=== PATIENT | female | born 1940 | race Caucasian/White ===

== ENCOUNTER 2017-02-08 08:50 | Inpatient (IN) | payer OTHER ==
[2017-02-08] VITALS (15 sets, daily range): BP systolic 137–179; BP diastolic 52–80; PULSE 54–84; TEMP 36.2–36.9; O2SAT 94–98; Ht 152.4 cm; Wt 69.9 kg
[~2017-02-08] VITALS: Ht 152.4 cm; Wt 69.9 kg
--- NOTE | 2017-02-08 09:13 | EMERGENCY ROOM VISIT NOTE ---
History Report prepared by Jolynn: Pablito Leyva Under the Supervision of: Dr. Nathen Anand D.O. First contact with patient: 09:00 Chief Complaint: CHEST PAIN Stated Complaint: MOUTH PAIN History of Present Illness The patient is a 76 year old female who presents to the Emergency Room with complaints of intermittent chest pain starting a few months ago. She also reports jaw pain. She has worsening pain with exertion and with lying down. The pain most often occurs at night. She took a nitro prior to arrival with relief. She denies any lower extremity swelling, or any other complaints. As per family member, she does not have any diagnosed history of a heart attack. Source of History: patient Onset: a few months ago Position: chest Timing: intermittent Modifying Factors (Worsening): exertion, other (lying down) Modifying Factors (Relieving): other (nitro with relief) Review of Systems See HPI for pertinent positives & negatives. A total of 10 systems reviewed and were otherwise negative. Past Medical & Surgical Medical Problems: (1) Chest pain (2) No Known Active Medical Problems Family History Patient reports no known family medical history. Social History Smoking Status: Never Smoker Marital Status: Housing Status: lives with family Current/Historical Medications Scheduled Carvedilol (Coreg), 12.5 MG PO BID Ibuprofen Tab (Advil), 200-600 MG PO Q4H Metformin Hcl (Glucophage), 1,000 MG PO BID Simvastatin (Zocor), 20 MG PO QPM Allergies Coded Allergies: No Known Allergies (Unverified , 02/08/17) Physical Exam Vital Signs Date Time Temp Pulse Resp B/P (MAP) Pulse Ox O2 Delivery O2 Flow Rate FiO2 02/08/17 09:59 86 20 144/67 98 Room Air 02/08/17 09:13 87 02/08/17 08:53 36.7 87 20 148/63 95 Room Air Physical Exam CONSTITUTIONAL/VITAL SIGNS: Reviewed / noted above. GENERAL: Non-toxic in appearance. INTEGUMENTARY: Warm, dry, and [place]. HEAD: Normocephalic. EYES: without scleral icterus or trauma. ENT/OROPHARYNX: clear and moist. LYMPHADENOPATHY/NECK: Is supple without lymphadenopathy or meningismus. RESPIRATORY: Lungs clear and equal. CARDIOVASCULAR: Regular rate and rhythm. GI/ABDOMEN: Soft and nontender. No organomegaly or pulsatile mass. No rebound or guarding. Normal bowel sounds. RECTAL: Light brown, guaiac negative stool. EXTREMITIES: Warm and well perfused. BACK: No CVA tenderness. NEUROLOGICAL: Intact without focal deficits. PSYCHIATRIC: normal affect. MUSCULOSKELETAL: Normally developed with good muscle tone. Medical Decision & Procedures ER Provider Diagnostic Interpretation: X ray results and stated below per my interpretation and radiology interpretation. CHEST ONE VIEW PORTABLE HISTORY:76 yearsFemale Evaluate Fever/Sepsis COMPARISON: Fever and sepsis. TECHNIQUE: Portable upright AP view of the chest. FINDINGS: The patient is slightly rotated. The cardiac silhouette is mildly enlarged with atherosclerosis of the aorta. There is no pneumothorax or large pleural effusion. There are patchy alveolar opacities of the right lung base, notably at the right cardiophrenic angle. No overt pulmonary edema. Bones appear to be grossly intact. IMPRESSION: 1. Patchy subsegmental alveolar opacities of the right lung base are present without comparison study available. This may reflect atelectasis or pneumonia. 2. Cardiomegaly without overt pulmonary edema. The above report was generated using voice recognition software. It may contain grammatical, syntax or spelling errors. Electronically signed by: Barron Slater 02/08/2017 9:49 AM Dictated Date/Time: 02/08/2017 9:46 AM Laboratory Results 02/08/17 09:20 Red Blood Count 3.74, Mean Corpuscular Volume 57.2, Mean Corpuscular Hemoglobin 15.0, Mean Corpuscular Hemoglobin Concent 26.2, Neutrophils (%) (Auto) 71.3, Lymphocytes (%) (Auto) 14.9, Monocytes (%) (Auto) 9.3, Eosinophils (%) (Auto) 3.1, Basophils (%) (Auto) 1.2, Neutrophils # (Auto) 3.69, Lymphocytes # (Auto) 0.77, Monocytes # (Auto) 0.48, Eosinophils # (Auto) 0.16, Basophils # (Auto) 0.06 02/08/17 09:20 Test 02/08/17 09:20 White Blood Count 5.17 K/uL (4.8-10.8) Red Blood Count 3.74 M/uL (4.2-5.4) Hemoglobin 5.6 g/dL (12.0-16.0) Hematocrit 21.4 % (37-47) Mean Corpuscular Volume 57.2 fL (80-100) Mean Corpuscular Hemoglobin 15.0 pg (25-34) Mean Corpuscular Hemoglobin Concent 26.2 g/dl (32-36) Platelet Count 268 K/uL (130-400) Neutrophils (%) (Auto) 71.3 % Lymphocytes (%) (Auto) 14.9 % Monocytes (%) (Auto) 9.3 % Eosinophils (%) (Auto) 3.1 % Basophils (%) (Auto) 1.2 % Neutrophils # (Auto) 3.69 K/uL (1.4-6.5) Lymphocytes # (Auto) 0.77 K/uL (1.2-3.4) Monocytes # (Auto) 0.48 K/uL (0.11-0.59) Eosinophils # (Auto) 0.16 K/uL (0-0.5) Basophils # (Auto) 0.06 K/uL (0-0.2) RDW Standard Deviation 40.8 fL (36.4-46.3) RDW Coefficient of Variation 19.6 % (11.5-14.5) Immature Granulocyte % (Auto) 0.2 % Immature Granulocyte # (Auto) 0.01 K/uL (0.00-0.02) Hypochromasia PRESENT Microcytosis PRESENT Prothrombin Time 11.0 SECONDS (9.0-12.0) Prothromb Time International Ratio 1.0 (0.9-1.1) Activated Partial Thromboplast Time 22.3 SECONDS (21.0-31.0) Partial Thromboplastin Ratio 0.9 Anion Gap 10.0 mmol/L (3-11) Estimated GFR () 94.6 Estimated GFR (Non- 81.6 BUN/Creatinine Ratio 28.0 (10-20) Calcium Level 9.1 mg/dl (8.5-10.1) Total Bilirubin 0.3 mg/dl (0.2-1) Direct Bilirubin 0.1 mg/dl (0-0.2) Aspartate Amino Transf (AST/SGOT) 9 U/L (15-37) Alanine Aminotransferase (ALT/SGPT) 20 U/L (12-78) Alkaline Phosphatase 65 U/L (45-117) Total Creatine Kinase 29 U/L (26-192) Creatine Kinase MB 1.1 ng/ml (0.5-3.6) Creatine Kinase MB Ratio 3.8 (0-3.0) Troponin I < 0.015 ng/ml (0-0.045) Total Protein 6.8 gm/dl (6.4-8.2) Albumin 3.8 gm/dl (3.4-5.0) Lipase 270 U/L (73-393) Laboratory results as stated above per my review. ECG Indication: chest pain Rate (beats per minute): 91 Rhythm: normal sinus Findings: no acute ischemic change, other (Mild ST depressions in lateral leads ) ED Course 0900: Previous medical records were reviewed. The patient was evaluated in room B11B. A complete history and physical examination was performed. 0953: I obtained consent for blood. I discussed the results and findings with the patient and her family. They verbalized agreement of the treatment plan. The patient will be evaluated for further management and care. 1011: I discussed the patient's case with Dr. Muniz, from [facility]. Medical Decision Medication Reconciliation: I attest that I have personally reviewed the patient' s current medication list. Patient was found to have a slightly elevated blood pressure due to circumstances. I do not believe that the patient requires hypertension monitoring. Differential diagnosis: Etiologies such as cardiac ischemia, aortic dissection, pulmonary embolism, pneumonia, pneumothorax, musculoskeletal, infections, pericarditis, myocarditis , esophageal rupture, gastrointestinal, as well as others were entertained. This is a 76-year-old female who presents to the ED with a chief complaint of exertional chest and jaw discomfort as well as some discomfort while lying in bed at rest. The patient states that she cannot walk very far without becoming symptomatic. She denies any fevers or recent illness. She has not had a cough. No nausea or vomiting. Her vital signs are stable. Physical exam reveals some paleness of the skin. Otherwise no significant abnormalities noted. Her hemoglobin is 5.6. Stool is guaiac-negative and light brown. Complete metabolic panel was unremarkable. Troponin is negative. Chest x-ray was suggestive of pneumonia or atelectasis per the radiologist. Clinically she does not have pneumonia. This is most likely atelectasis. The patient was typed and crossed and was ordered for transfusion of 2 units. I spoke with the hospitalist, who will see the patient for further inpatient evaluation and care. Consults Time Called: [phone] Consulting Physician: Dr. Muniz, from [facility] Returned Call: 1011 I discussed the patient's case with Dr. Muniz, from [facility]. Impression Primary Impression: Anemia Additional Impression: Chest pain Scribe Attestation The scribe's documentation has been prepared under my direction and personally reviewed by me in its entirety. I confirm that the note above accurately reflects all work, treatment, procedures, and medical decision making performed by me. Departure Information Dispostion Being Evaluated By Hospitalist Referrals No Doctor, Assigned (PCP) Patient Instructions My [facility] Problem Qualifiers
[2017-02-08 09:37] LABS: PARTIAL THROMBOPLASTIN RATIO 0.9
[2017-02-08] MEDS ORDERED: METF-384 PO (09:45)
[2017-02-08] MEDS ORDERED: CARV12.52 PO (09:45)
[2017-02-08] MEDS ORDERED: SIMV20TA2 PO (09:45)
[2017-02-08 09:46] LABS: ALT/SGPT 20 U/L (12-78); BLOOD UREA NITROGEN 20 mg/dl (7-18); CALCIUM 9.1 mg/dl (8.5-10.1); CARBON DIOXIDE 21 mmol/L (21-32); CHLORIDE 108 mmol/L (98-107); CREATININE 0.71 mg/dl (0.60-1.20); GLUCOSE 172 mg/dl (70-99); POTASSIUM 3.9 mmol/L (3.5-5.1); SODIUM 139 mmol/L (136-145)
[2017-02-08] MEDS ORDERED: IBUP-103 PO (09:46)
[2017-02-08 09:47] LABS: HEMATOCRIT 21.4 % (37-47); MEAN CELL VOLUME 57.2 fL (80-100); MEAN CORPUSCULAR HGB CONC 26.2 g/dl (32-36); PLATELET COUNT 268 K/uL (130-400); RED BLOOD COUNT 3.74 M/uL (4.2-5.4); WHITE BLOOD COUNT 5.17 K/uL (4.8-10.8)
--- NOTE | 2017-02-08 09:50 | DIAGNOSTIC IMAGING REPORT ---
CHEST ONE VIEW PORTABLE HISTORY:76 yearsFemale Evaluate Fever/Sepsis COMPARISON: Fever and sepsis. TECHNIQUE: Portable upright AP view of the chest. FINDINGS: The patient is slightly rotated. The cardiac silhouette is mildly enlarged with atherosclerosis of the aorta. There is no pneumothorax or large pleural effusion. There are patchy alveolar opacities of the right lung base, notably at the right cardiophrenic angle. No overt pulmonary edema. Bones appear to be grossly intact. IMPRESSION: 1. Patchy subsegmental alveolar opacities of the right lung base are present without comparison study available. This may reflect atelectasis or pneumonia. 2. Cardiomegaly without overt pulmonary edema. The above report was generated using voice recognition software. It may contain grammatical, syntax or spelling errors. Electronically signed by: Barron Slater 02/08/2017 9:49 AM Dictated Date/Time: 02/08/2017 9:46 AM
[2017-02-08 09:52] LABS: ALKALINE PHOSPHATASE 65 U/L (45-117); AST/SGOT 9 U/L (15-37); BASO % 1.2 %; BASO ABS # 0.06 K/uL (0-0.2); CKMB/CK RATIO 3.8 (0-3.0); COMPLETE YES; EOS % 3.1 %; HYPOCHROMIA PRESENT; IG% 0.2 %; LYMPH % 14.9 %; LYMPH ABS # 0.77 K/uL (1.2-3.4); MICROCYTOSIS PRESENT; MONO % 9.3 %; NEUT % 71.3 %
[2017-02-08 11:02] LABS: FERRITIN 5.6 ng/ml (8.0-388.0)
[2017-02-08] MEDS ORDERED: ONDANSETRON INJ 2 MG/ML 2 ML VIAL IV PRN (11:15)
[2017-02-08] MEDS ORDERED: ACETAMINOPHEN 325 MG TAB PO PRN (11:15)
[2017-02-08] MEDS ORDERED: CYAN100048 PO (11:21)
[2017-02-08] MEDS ORDERED: VITACAP37 PO (11:21)
[2017-02-08] MEDS ORDERED: ASPEC81 PO (11:21)
[2017-02-08] MEDS ORDERED: [UNRECOGNIZED DRUG - OTHER] PO (11:21)
[2017-02-08] MEDS ORDERED: MAGN400C2 PO (11:21)
[2017-02-08] MEDS ORDERED: B-COTAB18 PO (11:21)
[2017-02-08] MEDS ORDERED: [UNRECOGNIZED DRUG - OTHER] PO (11:21)
[2017-02-08] MEDS ORDERED: COEN1CAP PO (11:21)
[2017-02-08] MEDS ORDERED: DEXTROSE 50% 50 ML SYR IV PRN (11:30)
[2017-02-08] MEDS ORDERED: GLUCAGON FOR INJ 1 MG VIAL SQ PRN (11:30)
[2017-02-08] MEDS ORDERED: GLUCOSE 40% GEL 15 GM TUBE PO PRN (11:30)
[2017-02-08] MEDS ORDERED: GLUCOSE 10 TABS/TUBE PO PRN (11:30)
--- NOTE | 2017-02-08 11:43 | Gastrointestinal Consultation ---
Gastrointestinal Consultation Date of Consultation: Feb 08, 2017 Attending Physician: Carter Lees Consulting Physician: Nathan Gomez Reason for Consultation: Iron deficiency anemia History of Present Illness Patient is a 76 year old [place] female who presented to ED w c/o R sided chest pressure and jaw pain, worse w exertion and when lying down. She did take a Nitro before arrival to ED w some relief. Upon eval found to be severely anemic , H/H 5.6/21.4, low MCV, no coagulopathy, iron studies with low iron Fe 8, Transferrin sat 1%, Ferritin 5.6, high TIBC of 505, Tranferrin 381. B12, FA, Troponin was normal CXR showed signs of atelectasis vs pneumonia. She reports appetite loss recently but denies much weight loss, not vegetarian. Denies trouble chewing or swallowing food, abd pain, n/v. She does occasionally get indigestion symptoms. Bowels can be loose or normal at times. Denies any dark colored or bloody stools. Guaiac negative via rectal exam in ED. Past Medical/Surgical History Medical Problems: (1) Anemia Status: Acute (2) Chest pain Status: Acute Past Medical History: See above Past Surgical History: None Family History Patient reports no known family medical history. Sister w GI tumor unknown specifics Social History Smoking Status: Never Smoker Alcohol Use: none Drug Use: none Marital Status: Housing Status: lives with family Allergies Coded Allergies: No Known Allergies (Unverified , 02/08/17) Current Medications Home Meds and Scripts Medications Dose Route/Sig Max Daily Dose Days Date Category [burberine] 2 Tab PO BID 02/08/17 Reported [ardrey care] 7 Tab PO BID 02/08/17 Reported Magnesium Oxide 400 Mg Cap 1 Cap PO DAILY 30 02/08/17 Reported Vitamin B-12 (Cyanocobalamin) 1,000 Mcg Sub 2,000 Mcg PO DAILY 02/08/17 Reported Co Q10 (Coenzyme Q10) 30 Mg Cap 60 Mg PO DAILY 02/08/17 Reported Vitamin B Complex (B-Complex Vitamins) 1 Tab Tab 1 Tab PO DAILY 02/08/17 Reported E-400 (Vitamin E) 400 Unit Cap 1 Tab PO DAILY 02/08/17 Reported Aspirin EC Low Dose (Aspirin) 81 Mg Ectab 81 Mg PO DAILY 02/08/17 Reported Coreg (Carvedilol) 12.5 Mg Tab 12.5 Mg PO BID 02/08/17 Reported Zocor (Simvastatin) 20 Mg Tab 20 Mg PO QPM 02/08/17 Reported Glucophage (Metformin Hcl) 1,000 Mg Tab 1,000 Mg PO BID 02/08/17 Reported Review of Systems Constitutional: No fever, No chills Respiratory: No cough, No shortness of breath Cardiac: + chest pain Abdomen: No pain, No nausea, No vomiting, No diarrhea, No constipation, No GI bleeding Physical Exam Date Time Temp Pulse Resp B/P (MAP) Pulse Ox O2 Delivery O2 Flow Rate FiO2 02/08/17 11:12 77 20 167/71 97 02/08/17 10:38 80 22 171/75 96 Room Air 02/08/17 10:30 96 Room Air 02/08/17 09:59 86 20 144/67 98 Room Air 02/08/17 09:13 87 02/08/17 08:53 36.7 87 20 148/63 95 Room Air General Appearance: WD/WN, no apparent distress Eyes: normal inspection, PERRL, EOMI Neck: supple, no JVD, trachea midline Respiratory/Chest: normal breath sounds, no respiratory distress, no accessory muscle use Cardiovascular: regular rate, rhythm, no gallop, no murmur Abdomen: normal bowel sounds, non tender, soft Extremities: normal inspection, no pedal edema, no calf tenderness Neurologic/Psych: alert, normal mood/affect, oriented x 3 Skin: + pallor Laboratory Results Last 24 Hours Test 02/08/17 09:20 02/08/17 10:26 02/08/17 11:07 White Blood Count 5.17 K/uL Red Blood Count 3.74 M/uL Hemoglobin 5.6 g/dL Hematocrit 21.4 % Mean Corpuscular Volume 57.2 fL Mean Corpuscular Hemoglobin 15.0 pg Mean Corpuscular Hemoglobin Concent 26.2 g/dl Platelet Count 268 K/uL Neutrophils (%) (Auto) 71.3 % Lymphocytes (%) (Auto) 14.9 % Monocytes (%) (Auto) 9.3 % Eosinophils (%) (Auto) 3.1 % Basophils (%) (Auto) 1.2 % Neutrophils # (Auto) 3.69 K/uL Lymphocytes # (Auto) 0.77 K/uL Monocytes # (Auto) 0.48 K/uL Eosinophils # (Auto) 0.16 K/uL Basophils # (Auto) 0.06 K/uL RDW Standard Deviation 40.8 fL RDW Coefficient of Variation 19.6 % Immature Granulocyte % (Auto) 0.2 % Immature Granulocyte # (Auto) 0.01 K/uL Hypochromasia PRESENT Microcytosis PRESENT Absolute Reticulocyte Count 0.05 10^6/uL Percent Reticulocyte Count 1.5 % Prothrombin Time 11.0 SECONDS Prothromb Time International Ratio 1.0 Activated Partial Thromboplast Time 22.3 SECONDS Partial Thromboplastin Ratio 0.9 Sodium Level 139 mmol/L Potassium Level 3.9 mmol/L Chloride Level 108 mmol/L Carbon Dioxide Level 21 mmol/L Anion Gap 10.0 mmol/L Blood Urea Nitrogen 20 mg/dl Creatinine 0.71 mg/dl Estimated GFR () 94.6 Estimated GFR (Non- 81.6 BUN/Creatinine Ratio 28.0 Random Glucose 172 mg/dl Calcium Level 9.1 mg/dl Iron Level 8 mcg/dl Total Iron Binding Capacity 505 mcg/dl Transferrin 381 mg/dl Transferrin % Saturation 1 % % Ferritin 5.6 ng/ml Total Bilirubin 0.3 mg/dl Direct Bilirubin 0.1 mg/dl Aspartate Amino Transf (AST/SGOT) 9 U/L Alanine Aminotransferase (ALT/SGPT) 20 U/L Alkaline Phosphatase 65 U/L Total Creatine Kinase 29 U/L Creatine Kinase MB 1.1 ng/ml Creatine Kinase MB Ratio 3.8 Troponin I < 0.015 ng/ml Total Protein 6.8 gm/dl Albumin 3.8 gm/dl Lipase 270 U/L Vitamin B12 Level 696 pg/mL Folate > 24.00 ng/mL Impression Patient is a 76 year old female w symptoms of R sided chest and jaw pain, found to have severe anemia on evaluation. Troponin, EKG unremarkable. Her iron studies noted to be low, guaiac negative. Plan - Monitor H/H and transfuse prn - Iron repletion - Start Protonix 40mg daily for dyspepsia - No limitation on diet - Discussed w pt and her (Ben) about possible EGD/Colonoscopy to eval iron deficiency anemia, ruling out GI source of blood loss, tumors. They are undecided about these procedures at this time thus I haven't ordered these tests. Will ask our covering physician (Dr. Arevalo) over the weekend to check on pt and if she is willing to have these procedures done, she can be prepped for EGD/Colonoscopy next Saturday vs outpt eval. Addendum: At afternoon rounds, pt agreeable to have EGD/Colonoscopy eval on Sunday 02/11 if she's still admitted. Otherwise if discharged over weekend, will plan on outpt procedures. The endoscopic procedures should not hold up her discharge plans. ATTESTATION: I have performed a history and physical examination of this patient and reviewed the electronic record. Specifically, on physical examination there is no sign of ongoing gastrointestinal bleeding. I have discussed the case with LAURA Thacker. The above note reflects my findings, conclusions, and recommendations. Nathan Gomez MD
--- NOTE | 2017-02-08 12:23 | History and Physical ---
History & Physical Date & Time of Service: Feb 08, 2017 ~ 10:30 Chief Complaint: Jaw Pain Primary Care Physician: Dr. Brown History of Present Illness 76 year old female who presents to the ER with jaw pain. Patient reports pain has been present for the past several months. She notes pain is brought on with exertion. She notes both sides of her jaw ache with radiation into the neck. Pain has been getting worse and occurring with less exertion. Jaw pain also occurs when laying down sometimes. Patient also reports intermittent episodes of left sided chest pain. She reports this pain is not as severe at the jaw pain. She describes it as a mild ache. No radiation into the shoulder or arm. Chest pain does not always occur with the jaw pain. She reports intermittent lightheadedness and dizziness. No syncopal events. Also feels short of breath with exertion at times. She reports a cough over the past one week that has been productive for white / yellow sputum. She denies fever and chills. Reports her appetite has been fair. She denies weight loss. Reports intermittent loose stools. No BRBPR or dark tarry stools. She denies abdominal pain, nausea, or vomiting. She denies urinary symptoms. In the ER, patient is found to have hgb 5.6. Vitals are stable. Stool was heme negative. CXR is showing right basilar opacity suggestive of pneumonia. Past Medical/Surgical History Medical Problems: (1) Chest pain Status: Resolved (2) DM (diabetes mellitus) Status: Chronic (3) HLD (hyperlipidemia) Status: Chronic (4) HTN (hypertension) Status: Chronic Surgical Problems: (1) H/O total hysterectomy Status: Chronic (2) H/O umbilical hernia repair Status: Chronic (3) S/P appendectomy Status: Chronic (4) S/P cholecystectomy Status: Chronic Family History FH: leukemia SISTER Social History Smoking Status: Never Smoker Alcohol Use: none Marital Status: Allergies Coded Allergies: No Known Allergies (Unverified , 02/08/17) Home Medications Scheduled Aspirin (Aspirin EC Low Dose), 81 MG PO DAILY B-Complex Vitamins (Vitamin B Complex), 1 TAB PO DAILY Carvedilol (Coreg), 12.5 MG PO BID Coenzyme Q10 (Ubidecarenone) (Co Q10), 60 MG PO DAILY Cyanocobalamin (Vitamin B-12), 2,000 MCG PO DAILY Magnesium Oxide (Magnesium Oxide), 1 CAP PO DAILY Metformin Hcl (Glucophage), 1,000 MG PO BID Simvastatin (Zocor), 20 MG PO QPM Vitamin E (E-400), 1 TAB PO DAILY [ardrey care], 7 TAB PO BID [burberine], 2 TAB PO BID Review of Systems ROS per HPI, all other systems reviewed and negative Physical Exam Vital Signs Date Time Temp Pulse Resp B/P (MAP) Pulse Ox O2 Delivery O2 Flow Rate FiO2 02/08/17 11:12 77 20 167/71 97 02/08/17 10:38 80 22 171/75 96 Room Air 02/08/17 10:30 96 Room Air 02/08/17 09:59 86 20 144/67 98 Room Air 02/08/17 09:13 87 02/08/17 08:53 36.7 87 20 148/63 95 Room Air General Appearance: no apparent distress Head: normocephalic Eyes: normal inspection ENT: hearing grossly normal Neck: supple, no JVD Respiratory/Chest: no respiratory distress, + crackles (right base, faint) Cardiovascular: regular rate, rhythm, + pertinent finding (trace edema BLLE) Abdomen/GI: normal bowel sounds, non tender, soft Extremities/Musculoskelatal: normal inspection, no calf tenderness Neurologic/Psych: no motor/sensory deficits, alert, normal mood/affect, oriented x 3 Skin: warm/dry, + pallor Diagnostics Laboratory Results Results Past 24 Hours Test 02/08/17 09:20 02/08/17 10:26 02/08/17 11:27 Range/Units White Blood Count 5.17 4.8-10.8 K/uL Red Blood Count 3.74 4.2-5.4 M/uL Hemoglobin 5.6 12.0-16.0 g/dL Hematocrit 21.4 37-47 % Mean Corpuscular Volume 57.2 80-100 fL Mean Corpuscular Hemoglobin 15.0 25-34 pg Mean Corpuscular Hemoglobin Concent 26.2 32-36 g/dl Platelet Count 268 130-400 K/uL Neutrophils (%) (Auto) 71.3 % Lymphocytes (%) (Auto) 14.9 % Monocytes (%) (Auto) 9.3 % Eosinophils (%) (Auto) 3.1 % Basophils (%) (Auto) 1.2 % Neutrophils # (Auto) 3.69 1.4-6.5 K/uL Lymphocytes # (Auto) 0.77 1.2-3.4 K/uL Monocytes # (Auto) 0.48 0.11-0.59 K/uL Eosinophils # (Auto) 0.16 0-0.5 K/uL Basophils # (Auto) 0.06 0-0.2 K/uL RDW Standard Deviation 40.8 36.4-46.3 fL RDW Coefficient of Variation 19.6 11.5-14.5 % Immature Granulocyte % (Auto) 0.2 % Immature Granulocyte # (Auto) 0.01 0.00-0.02 K/uL Hypochromasia PRESENT Microcytosis PRESENT Absolute Reticulocyte Count 0.05 0.02-0.10 10^6/uL Percent Reticulocyte Count 1.5 0.5-2.0 % Prothrombin Time 11.0 9.0-12.0 SECONDS Prothromb Time International Ratio 1.0 0.9-1.1 Activated Partial Thromboplast Time 22.3 21.0-31.0 SECONDS Partial Thromboplastin Ratio 0.9 Sodium Level 139 136-145 mmol/L Potassium Level 3.9 3.5-5.1 mmol/L Chloride Level 108 98-107 mmol/L Carbon Dioxide Level 21 21-32 mmol/L Anion Gap 10.0 3-11 mmol/L Blood Urea Nitrogen 20 7-18 mg/dl Creatinine 0.71 0.60-1.20 mg/dl Estimated GFR () 94.6 Estimated GFR (Non- 81.6 BUN/Creatinine Ratio 28.0 10-20 Random Glucose 172 70-99 mg/dl Calcium Level 9.1 8.5-10.1 mg/dl Iron Level 8 35-150 mcg/dl Total Iron Binding Capacity 505 250-450 mcg/dl Transferrin 381 200-360 mg/dl Transferrin % Saturation 1 15-50 % Ferritin 5.6 8.0-388.0 ng/ml Total Bilirubin 0.3 0.2-1 mg/dl Direct Bilirubin 0.1 0-0.2 mg/dl Aspartate Amino Transf (AST/SGOT) 9 15-37 U/L Alanine Aminotransferase (ALT/SGPT) 20 12-78 U/L Alkaline Phosphatase 65 45-117 U/L Total Creatine Kinase 29 26-192 U/L Creatine Kinase MB 1.1 0.5-3.6 ng/ml Creatine Kinase MB Ratio 3.8 0-3.0 Troponin I < 0.015 0-0.045 ng/ml Total Protein 6.8 6.4-8.2 gm/dl Albumin 3.8 3.4-5.0 gm/dl Lipase 270 73-393 U/L Vitamin B12 Level 696 211-911 pg/mL Folate > 24.00 >5.38 ng/mL Diagnostic Radiology CXR IMPRESSION: 1. Patchy subsegmental alveolar opacities of the right lung base are present without comparison study available. This may reflect atelectasis or pneumonia. 2. Cardiomegaly without overt pulmonary edema. Impression Assessment and Plan SEVERE ANEMIA - admit to tele - patient presenting with worsening exertional jaw pain, chest pain, and shortness of breath for the past few months; in the ED, found to have hgb 5.6 - appears to be RUDY - stools heme negative in ED, no obvious signs of bleeding, vitals stable - will transfuse with 2 units PRBC, check H/H post transfusion - no history of EGD or colonoscopy - GI consult placed; however patient unsure if she would want the testing done - will start iron replacement CHEST PAIN - likely from symptomatic anemia - initial troponin negative, EKG shows ST depressions in the lateral leads - possibly demand ischemia from anemia - continue cycle cardiac enzymes, check resting echo - re-evaluate symptoms once hgb improves; consider stress test - continue ASA, beta cleve, and statin COMMUNITY ACQUIRED PNEUMONIA - productive cough x 1 week - right basilar opacity on CXR - no signs of sepsis - Levaquin 750mg x 5 days HTN - BP controlled, continue carvedilol DM - hgb a1c 7.0 04/2016 - hold oral agents and utilize SSI while hospitalized DVT PROPHYLAXIS - SCDs due to anemia CODE STATUS - Patient is a DNR as per my discussion with her. DISPO - In my clinical judgment this beneficiary meets acute admission criteria, established by [facility], that includes being hospitalized through two midnights. Attending Note: Patient is a a 76 yr female presents for evaluation of ongoing intermittent chest and Jaw pain associated with exertional SOB sine few months and also reports cough with yellowish sputum since 1 week. Denies any source of bleeding. Never had endoscopy/colonoscopy. Physical Exam: Vitals signs as noted above General Appearance:Moderately built and nourished, no apparent distress Head: normocephalic, Atraumatic Eyes: normal inspection, EOMI, PERRL, + Pallor Neck: supple, Trachea midline Respiratory/Chest: Normal breath sounds, CTA Cardiovascular: S1, S2, No murmur Abdomen/GI:Soft, Non tender, Bowel sounds present Extremities/Musculoskelatal:normal inspection, no edema Neurologic/Psych:AAOX3, grossly no focal neurological deficits Skin:normal color,warm Assessment and Plan: Symptomatic Anemia: Likely Iron deficiency GI consulted for possible Endo/Colonoscopy Transfuse 2 units PRBCs Iron therapy started Monitor Hb Chest Pain r/o ACS: No previous EKG to compare I personally reviewed the record. Patient is interviewed and examined at bedside. Patient's care is coordinated with Juany Avila [employer]. Please refer to the documentation above for details of patient's presentation and for discussion of other issues. Advanced Directives Existing Living Will: No Existing Power of Housekeeper And Laundry Assistant: No VTE Prophylaxis VTE Risk Assessment Done? Y/N: Yes Risk Level: Moderate
[2017-02-08 12:26] LABS: HEMATOCRIT 19.5 % (37-47)
[2017-02-08] MEDS: INSULIN ASPART 100 UNITS/ML 3 ML PEN SC SCH ×3 (12:30→20:59)
[2017-02-08 12:55] LABS: URINE APPEARANCE CLEAR (CLEAR); URINE BILIRUBIN NEG (NEG); URINE COLOR YELLOW; URINE NITRITE NEG (NEG); URINE PH 5.5 (4.5-7.5); URINE SPECIFIC GRAVITY 1.014 (1.000-1.030); UROBILINOGEN NEG (NEG); ZZUR CULT IF INDIC CLEAN CATCH YES
[2017-02-08 12:57] LABS: MANUAL MICROSCOPIC REQUIRED? NO; REVIEW REQ? NO
[2017-02-08] MEDS: LEVOFLOXACIN 750 MG TAB PO SCH (13:02)
[2017-02-08] MEDS: FERROUS SULFATE 325 MG TAB PO SCH ×2 (13:02→16:57)
[2017-02-08] MEDS ORDERED: PANTOprazole SOD 40 MG TAB PO ONE (16:23)
[2017-02-08] MEDS ORDERED: NURSING VERBAL MED ORDER ONE (16:30)
[2017-02-08] MEDS ORDERED: DICLOFENAC SOD 1% GEL 100 GM TUBE EXT PRN (16:30)
[2017-02-08] MEDS ORDERED: AMLODIPINE BESYLATE 5 MG TAB PO ONE (17:00)
[2017-02-08 19:04] LABS: HEMATOCRIT 27.8 % (37-47)
[2017-02-08] MEDS ORDERED: SIMVASTATIN 20 MG TAB PO SCH (21:00)
[2017-02-08] MEDS: CARVEDILOL 12.5 MG TAB PO SCH (21:03)
[2017-02-09] VITALS (7 sets, daily range): BP systolic 151–178; BP diastolic 59–80; PULSE 73–85; TEMP 36.4–37.1; O2SAT 92–96
[2017-02-09] MEDS: INSULIN ASPART 100 UNITS/ML 3 ML PEN SC SCH ×3 (07:00→16:51)
[2017-02-09 07:19] LABS: MEAN CELL VOLUME 61.8 fL (80-100); MEAN CORPUSCULAR HEMOGLOBIN 18.5 pg (25-34); PLATELET COUNT 232 K/uL (130-400); RED BLOOD COUNT 4.53 M/uL (4.2-5.4); WHITE BLOOD COUNT 5.63 K/uL (4.8-10.8)
[2017-02-09] MEDS: CARVEDILOL 12.5 MG TAB PO SCH (07:22)
[2017-02-09] MEDS: FERROUS SULFATE 325 MG TAB PO SCH ×3 (07:25→16:48)
[2017-02-09 07:53] LABS: ESTIMATED AVERAGE GLUCOSE 140 mg/dl; HA1C FLAG Normal (Normal)
[2017-02-09 08:06] LABS: BUN/CREATININE RATIO 21.3 (10-20); CREATININE 0.62 mg/dl (0.60-1.20); POTASSIUM 3.6 mmol/L (3.5-5.1)
[2017-02-09] MEDS ORDERED: PANTOprazole SOD 40 MG TAB PO SCH (09:00)
[2017-02-09] MEDS ORDERED: VITAMIN B COMPLEX TAB PO SCH (09:00)
[2017-02-09] MEDS ORDERED: COENZYME Q10 60 MG PO SCH (09:00)
[2017-02-09] MEDS ORDERED: MAGNESIUM OXIDE 400 MG TAB PO SCH (09:00)
[2017-02-09] MEDS ORDERED: ASPIRIN 81 MG ECTAB PO SCH (09:00)
[2017-02-09] MEDS ORDERED: TOCOPHERYL, DL-ALPHA 400 INTER.UNIT CAP PO SCH (09:00)
[2017-02-09] MEDS ORDERED: CYANOCOBALAMIN 500 MCG TAB (VIT B-12) PO SCH (09:00)
[2017-02-09] MEDS ORDERED: CEFTRIAXONE SOD INJ 1 GM in DEXTROSE 5% ADD-VANTAGE 50ML 50 ML IV SCH (10:30)
[2017-02-09] MEDS: LEVOFLOXACIN 750 MG TAB PO SCH (11:10)
--- NOTE | 2017-02-09 13:15 | ECHOCARDIOGRAM REPORT ---
*NOTICE TO RECEIVING CONSTITUTION PARTY AGENCY This information is strictly Confidential and protected under [place] law. [place] law prohibits you from making any further disclosure of this information unless further disclosure is expressly permitted by the written consent of the person to whom it pertains or is authorized by law. A general authorization for the release of medical or other information is not sufficient for this purpose. Hospital accepts no responsibility if the information is made available to any other person, INCLUDING THE PATIENT. Interpretation Summary * Name: KATHRYN LAZAR Study Date: 02/09/2017 08:52 AM * Patient Location: .2T\S\S232\S\1 HR: 79 * : 1940 (M/d/yyyy) Gender: Female Height: 62 in * Age: 76 yrs Ethnicity: [place] Weight: 154 lb * Ordering Physician: Juany Avila * Referring Physician: Self, Referred * Performed By: [facility] * * Reason For Study: Chest pain * BSA: 1.7 m2 * -- Conclusions -- * Normal LV chamber size with mild concentric LVH. * Normal LV systolic function, EF 65-70%. * No segmental left ventricular wall motion abnormalities are noted. * Grade I diastolic dysfunction. * Aortic valve sclerosis mild, without significant aortic valvular stenosis. Procedure Details * Left Ventricle The left ventricle is normal in size. There is mild concentric left ventricular hypertrophy. Ejection Fraction = 65-70%. Left ventricular systolic function is normal. No segmental left ventricular wall motion abnormalities are noted. The left ventricular wall motion is normal. * Right Ventricle The right ventricular cavity size is normal (basal dimension <4.2 cm in right ventricular apical 4-chamber view). The right ventricular systolic function is normal as assessed by tricuspid annular plane systolic excursion (TAPSE) (normal >1.5 cm). * Atria The left atrial size is normal. Right atrial size is normal. No ASD detected; PFO is not assessed. * Mitral Valve The mitral valve is normal in structure and function. * Tricuspid Valve The tricuspid valve is normal in structure and function. * Aortic Valve The aortic valve is trileaflet. Aortic valve sclerosis mild, without significant aortic valvular stenosis. There is no significant aortic regurgitation. * Pulmonic Valve The pulmonary valve is not well seen, but the Doppler examination is normal without significant regurgitation or stenosis. * Great Vessels The aortic root is not well visualized. * Pericardium/Pleural There is no pericardial effusion. * Left Ventricular Diastolic Function Grade I diastolic dysfunction, (abnormal relaxation pattern). * * MMode 2D Measurements and Calculations * IVSd 1.0 cm * * LVIDd 5.0 cm * LVIDs 2.8 cm * LVPWd 1.1 cm * * IVS/LVPW 0.92 * FS 43.9 % * EDV(Teich) 117.0 ml * ESV(Teich) 29.3 ml * EF(Teich) 74.9 % * * EDV(cubed) 123.3 ml * ESV(cubed) 21.7 ml * EF(cubed) 82.4 % * * LV mass(C)d 198.3 grams * LV mass(C)dI 115.9 grams/m\S\2 * * SV(Teich) 87.7 ml * SI(Teich) 51.2 ml/m\S\2 * SV(cubed) 101.5 ml * SI(cubed) 59.4 ml/m\S\2 * * Ao root diam 2.9 cm * Ao root area 6.5 cm\S\2 * * LVOT diam 2.0 cm * LVOT area 3.3 cm\S\2 * * LVAd ap4 27.8 cm\S\2 * LVLd ap4 8.1 cm * EDV(MOD-sp4) 79.1 ml * EDV(sp4-el) 81.2 ml * LVAs ap4 12.4 cm\S\2 * LVLs ap4 6.2 cm * ESV(MOD-sp4) 20.5 ml * ESV(sp4-el) 21.1 ml * EF(MOD-sp4) 74.1 % * EF(sp4-el) 74.0 % * * LVAd ap2 26.1 cm\S\2 * LVLd ap2 8.0 cm * EDV(MOD-sp2) 69.9 ml * EDV(sp2-el) 72.4 ml * LVAs ap2 13.0 cm\S\2 * LVLs ap2 6.7 cm * ESV(MOD-sp2) 21.9 ml * ESV(sp2-el) 21.4 ml * EF(MOD-sp2) 68.6 % * EF(sp2-el) 70.4 % * * LVLd %diff -1.34 % * EDV(MOD-bp) 75.5 ml * LVLs %diff 7.5 % * ESV(MOD-bp) 21.7 ml * EF(MOD-bp) 71.2 % * * SV(MOD-sp4) 58.6 ml * SI(MOD-sp4) 34.2 ml/m\S\2 * * SV(MOD-sp2) 48.0 ml * SI(MOD-sp2) 28.0 ml/m\S\2 * * SV(MOD-bp) 53.7 ml * SI(MOD-bp) 31.4 ml/m\S\2 * * SV(sp4-el) 60.1 ml * SI(sp4-el) 35.1 ml/m\S\2 * * SV(sp2-el) 50.9 ml * SI(sp2-el) 29.8 ml/m\S\2 * * * Doppler Measurements and Calculations * MV E max simona 103.5 cm/sec * * MV dec time 0.18 sec * * Ao V2 max 154.1 cm/sec * Ao max PG 9.5 mmHg * Ao max PG (full) 5.4 mmHg * DASHA(V,A) 2.2 cm\S\2 * DASHA(V,D) 2.2 cm\S\2 * * LV V1 max PG 4.1 mmHg * * LV V1 max 101.4 cm/sec * * * * *
--- NOTE | 2017-02-09 15:07 | Progress Note ---
Medicine Progress Note Date & Time of Visit: Feb 09, 2017 at 14:49. Subjective Pt was seen and examined Lying in bed with no distress with as bedside Pt said that she feels much better she said that she is not having the jaw pain and the chest pain She had a normal BM yesterday she feels a little weak Denies any chest pain, palpitation, dizziness and SOB Objective Last 8 Hrs Date Time Temp Pulse Resp B/P (MAP) Pulse Ox O2 Delivery O2 Flow Rate FiO2 02/09/17 12:35 36.7 79 16 151/59 (89) 96 Room Air 02/09/17 11:24 Room Air 02/09/17 08:00 Room Air 02/09/17 07:50 36.8 73 20 151/75 (100) 92 Room Air Physical Exam: General- No acute distress Head- atraumatic Eyes- PERRL, EOMI ENT- oropharynx clear Neck- supple, no JVD Lungs- mild faint wheezing Heart- regular rhythm Abdomen- normal bowel sounds, nontender Extremities- no calf tenderness Neuro- alert, oriented x 3; PERRL, EOMI Skin- warm & dry Laboratory Results: Last 24 Hours Test 02/08/17 15:00 02/08/17 17:00 02/08/17 18:42 02/08/17 20:52 Creatine Kinase MB Ratio Bedside Glucose 137 mg/dl 129 mg/dl Hemoglobin 8.2 g/dL Hematocrit 27.8 % Creatine Kinase MB 0.5 ng/ml Troponin I < 0.015 ng/ml Test 02/08/17 23:40 02/09/17 06:28 02/09/17 06:48 02/09/17 11:22 Creatine Kinase MB < 0.5 ng/ml Creatine Kinase MB Ratio Troponin I < 0.015 ng/ml Bedside Glucose 147 mg/dl 166 mg/dl White Blood Count 5.63 K/uL Red Blood Count 4.53 M/uL Hemoglobin 8.4 g/dL Hematocrit 28.0 % Mean Corpuscular Volume 61.8 fL Mean Corpuscular Hemoglobin 18.5 pg Mean Corpuscular Hemoglobin Concent 30.0 g/dl RDW Standard Deviation 56.9 fL RDW Coefficient of Variation 25.8 % Platelet Count 232 K/uL Sodium Level 140 mmol/L Potassium Level 3.6 mmol/L Chloride Level 108 mmol/L Carbon Dioxide Level 23 mmol/L Anion Gap 9.0 mmol/L Blood Urea Nitrogen 13 mg/dl Creatinine 0.62 mg/dl Est Creatinine Clear Calc Drug Dose 68.5 ml/min Estimated GFR () 100.1 Estimated GFR (Non- 86.4 BUN/Creatinine Ratio 21.3 Random Glucose 127 mg/dl Estimated Average Glucose 140 mg/dl Hemoglobin A1c 6.5 % Calcium Level 9.0 mg/dl Assessment & Plan SEVERE ANEMIA - Present with Hgb 5.6 on admission - Mostly due to RUDY - stools heme negative in ED, no obvious signs of bleeding, vitals stable - Transfused 2 units PRBC yesterday - Gastro on board recommended EGD and colonoscopy work up - Pt wants to go home and she will arrange for workup as an outpatient - Continue iron supplement - check H/H at 5pm and if stable, will discharge home and will do EGD/ Colonoscopy as an outpatient. CHEST PAIN - likely from symptomatic anemia - EKG shows ST depressions in the lateral leads - possibly demand ischemia from anemia - All sets CM are negative - Continue ASA since no signs of active bleeding, will hold if hgb drops after blood transfusion - continue beta cleve, and statin - Echo done showed Normal LV chamber size with mild concentric LVH. * Normal LV systolic function, EF 65-70%. * No segmental left ventricular wall motion abnormalities are noted. * Grade I diastolic dysfunction. * Aortic valve sclerosis mild, without significant aortic valvular stenosis. COMMUNITY ACQUIRED PNEUMONIA - productive cough x 1 week - right basilar opacity on CXR - no signs of sepsis - Levaquin 750mg x 5 days UTI Asymptomatic, afebrile, no leukocytosis Urine cx growth Ecoli Receive rocephin x1 Already on levaquin that should be covered for UTI HTN - BP controlled, continue carvedilol Stable DM - hgb a1c 6.5 on 02/09 - Controlled - hold oral agents and utilize SSI while hospitalized DVT PROPHYLAXIS - SCDs due to anemia CODE STATUS - Patient is a DNR as per my discussion with her. Consultants: Gastro Current Inpatient Medications: Current Inpatient Medications Medications (Trade) Dose Ordered Sig/Vance Route Start Time Stop Time Status Last Admin Dose Admin Acetaminophen (Tylenol Tab) 650 mg Q4H PRN PO 02/08/17 11:15 03/10/17 11:14 02/08/17 15:09 650 MG Ondansetron HCl (Zofran Inj) 4 mg Q6H PRN IV 02/08/17 11:15 03/10/17 11:14 Levofloxacin (Levaquin Tab) 750 mg DAILY@11 PO 02/08/17 13:00 02/12/17 11:01 02/09/17 11:10 750 MG Ferrous Sulfate (Feosol Tab) 325 mg TIDM PO 02/08/17 12:30 03/10/17 12:29 02/09/17 11:10 325 MG Aspirin (Ecotrin Tab) 81 mg DAILY PO 02/09/17 09:00 03/11/17 08:59 02/09/17 07:25 81 MG Carvedilol (Coreg Tab) 12.5 mg BID PO 02/08/17 21:00 03/10/17 20:59 02/09/17 07:22 12.5 MG Simvastatin (Zocor Tab) 20 mg QPM PO 02/08/17 21:00 03/10/17 20:59 02/08/17 21:03 20 MG ep-Ppwfo-Ypkcpzujin Acetate (Vitamin E Cap) 400 interunit DAILY PO 02/09/17 09:00 03/11/17 08:59 02/09/17 07:26 400 INTERUNIT Vitamin B Complex (Vitamin B Complex) 1 tab DAILY PO 02/09/17 09:00 03/11/17 08:59 02/09/17 07:24 1 TAB Cyanocobalamin (Vitamin B-12 Tab) 2,000 mcg DAILY PO 02/09/17 09:00 03/11/17 08:59 02/09/17 07:23 2,000 MCG Magnesium Oxide (Mag-Ox Tab) 400 mg DAILY PO 02/09/17 09:00 03/11/17 08:59 02/09/17 07:25 400 MG Insulin Aspart (novoLOG ASPART) SLIDING SCALE If C... ACHS SC 02/08/17 12:30 03/10/17 12:29 02/08/17 17:04 2 UNITS Glucose (Glucose 40% Gel) 15-30 GRAMS 15 GRAMS... UD PRN PO 02/08/17 11:30 03/10/17 11:29 Glucose (Glucose Chew Tab) 4-8 Tablets 4 Tabl... UD PRN PO 02/08/17 11:30 8/6/17 11:29 Dextrose (Dextrose 50% 50ML Syringe) 25-50ML OF 50% DW IV FOR... UD PRN IV 02/08/17 11:30 03/10/17 11:29 Glucagon (Glucagon Inj) 1 mg UD PRN SQ 02/08/17 11:30 03/10/17 11:29 Bisacodyl (Dulcolax Tab) 20 mg ONE ONCE PO 02/10/17 17:00 02/10/17 17:01 Polyethylene (Miralax Powder Packet) 119 gm ONE ONCE PO 02/10/17 17:00 02/10/17 17:01 Polyethylene (Miralax Powder Packet) 119 gm ONE ONCE PO 02/10/17 21:00 02/10/17 21:01 Pantoprazole Sodium (Protonix Tab) 40 mg QAM PO 02/09/17 09:00 03/11/17 08:59 02/09/17 07:24 40 MG Diclofenac Sodium (Voltaren 1% Top Gel) 1 appln BID PRN EXT 02/08/17 16:30 03/10/17 16:29 Ceftriaxone Sodium 1 gm/ Dextrose 50 ml @ 100 mls/hr Q24H IV 02/09/17 10:30 02/14/17 10:14 02/09/17 10:46 100 MLS/HR
[2017-02-09] MEDS ORDERED: ALBUT/IPRATROP 3MG/0.5MG NEB 3 ML VIAL INH ONE (17:00)
[2017-02-09 17:03] LABS: HEMATOCRIT 29.9 % (37-47)
[2017-02-09] MEDS ORDERED: FRRS300 PO (17:39)
[2017-02-09] MEDS ORDERED: LVQ750 PO (17:39)
[2017-02-09] MEDS ORDERED: PRT40 PO (17:39)
--- NOTE | 2017-02-09 17:47 | Discharge Instructions ---
Discharge Instructions Date of Service Feb 09, 2017. Admission Reason for Admission: Anemia Discharge Discharge Diagnosis / Problem: Anemia, Chest pain, Pnemonia, Abnormal urine Discharge Goals Goal(s): Decrease discomfort, Improve function, Improve disease control Activity Recommendations Activity Limitations: resume your previous activity (as tolerated) . Instructions / Follow-Up Instructions / Follow-Up Please follow up with your physician on 02/14/17 at 12:45 pm Check CBC in 1 week Your physician will arrange for referral to see the abdominal specialist doctor that you can get an colonoscopy and Endoscopy as an outpatient Continue iron supplement complete the antibiotic (levaquin) course Please avoid Naproxen, aleve, motrin, ibuprofen for now. Current Hospital Diet Patient's current hospital diet: AHA Diet (Heart Healthy) Discharge Diet Recommended Diet: AHA Diet (Heart Healthy) Pending Studies Studies pending at discharge: yes List of pending studies: Urine culture Laboratory Results Hemoglobin A1c Test 02/09/17 06:48 Range/Units Estimated Average Glucose 140 mg/dl Hemoglobin A1c 6.5 H 4.5-5.6 % Medical Emergencies . Who to Call and When: Medical Emergencies: If at any time you feel your situation is an emergency, please call 911 immediately. . Non-Emergent Contact Non-Emergency issues call your: Primary Care Provider Call Non-Emergent contact if: you have a fever, you have any medication questions . . "Provider Documentation" section prepared by Hilaria Muniz. . VTE Core Measure Inpt VTE Proph given/why not?: SCD's, Contraindicated
[2017-02-10] MEDS ORDERED: BISACODYL 5 MG TABEC PO ONE (17:00)
[2017-02-10] MEDS ORDERED: POLYETHYLENE (MIRALAX) 17 GM PACK PO ONE ×2 (17:00→21:00)
--- NOTE | 2017-02-13 00:13 | Discharge Summary ---
Discharge Summary Date of Service Feb 13, 2017. Discharge Summary Admission Date: Feb 08, 2017 at 10:21 Discharge Date: Feb 09, 2017 Discharge Disposition: Home Principal Diagnosis: Severe Anemia Secondary Diagnoses/Problems: Anemia Chest pain Pneumonia Abnormal urine HTN DM Procedures: [~ rep ct add3]] CHEST ONE VIEW PORTABLE HISTORY:76 yearsFemale Evaluate Fever/Sepsis COMPARISON: Fever and sepsis. TECHNIQUE: Portable upright AP view of the chest. FINDINGS: The patient is slightly rotated. The cardiac silhouette is mildly enlarged with atherosclerosis of the aorta. There is no pneumothorax or large pleural effusion. There are patchy alveolar opacities of the right lung base, notably at the right cardiophrenic angle. No overt pulmonary edema. Bones appear to be grossly intact. IMPRESSION: 1. Patchy subsegmental alveolar opacities of the right lung base are present without comparison study available. This may reflect atelectasis or pneumonia. 2. Cardiomegaly without overt pulmonary edema. The above report was generated using voice recognition software. It may contain grammatical, syntax or spelling errors. Electronically signed by: Barron Slater 02/08/2017 9:49 AM Dictated Date/Time: 02/08/2017 9:46 AM Consultations: Gastro Medication Reconciliation New Medications: Ferrous Sulfate (Ferrous Sulfate) 325 Mg Tab 325 MG PO BID for 30 Days, #60 TAB Levofloxacin (Levofloxacin) 750 Mg Tab 750 MG PO DAILY@11 for 3 Days, TAB Pantoprazole (Pantoprazole Sodium) 40 Mg Tab 40 MG PO QAM for 30 Days, #30 TAB Continued Medications: Aspirin (Aspirin EC Low Dose) 81 Mg Ectab 81 MG PO DAILY B-Complex Vitamins (Vitamin B Complex) 1 Tab Tab 1 TAB PO DAILY Carvedilol (Coreg) 12.5 Mg Tab 12.5 MG PO BID, TAB Coenzyme Q10 (Ubidecarenone) (Co Q10) 30 Mg Cap 60 MG PO DAILY, CAP Cyanocobalamin (Vitamin B-12) 1,000 Mcg Sub 2000 MCG PO DAILY Magnesium Oxide (Magnesium Oxide) 400 Mg Cap 1 CAP PO DAILY for 30 Days, #30 CAP 3 Refills Metformin Hcl (Glucophage) 1,000 Mg Tab 1000 MG PO BID, TAB Simvastatin (Zocor) 20 Mg Tab 20 MG PO QPM, TAB Vitamin E (E-400) 400 Unit Cap 1 TAB PO DAILY [ardrey care] () 7 TAB PO BID [burberine] () 2 TAB PO BID Admission Information HPI (per Admitting provider): 76 year old female who presents to the ER with jaw pain. Patient reports pain has been present for the past several months. She notes pain is brought on with exertion. She notes both sides of her jaw ache with radiation into the neck. Pain has been getting worse and occurring with less exertion. Jaw pain also occurs when laying down sometimes. Patient also reports intermittent episodes of left sided chest pain. She reports this pain is not as severe at the jaw pain. She describes it as a mild ache. No radiation into the shoulder or arm. Chest pain does not always occur with the jaw pain. She reports intermittent lightheadedness and dizziness. No syncopal events. Also feels short of breath with exertion at times. She reports a cough over the past one week that has been productive for white / yellow sputum. She denies fever and chills. Reports her appetite has been fair. She denies weight loss. Reports intermittent loose stools. No BRBPR or dark tarry stools. She denies abdominal pain, nausea, or vomiting. She denies urinary symptoms. In the ER, patient is found to have hgb 5.6. Vitals are stable. Stool was heme negative. CXR is showing right basilar opacity suggestive of pneumonia. Physical Exam (per Admitting): General Appearance: no apparent distress Head: normocephalic Eyes: normal inspection ENT: hearing grossly normal Neck: supple, no JVD Respiratory/Chest: no respiratory distress, + crackles (right base, faint) Cardiovascular: regular rate, rhythm, + pertinent finding (trace edema BLLE) Abdomen/GI: normal bowel sounds, non tender, soft Extremities/Musculoskelatal: normal inspection, no calf tenderness Neurologic/Psych: no motor/sensory deficits, alert, normal mood/affect, oriented x 3 Skin: warm/dry, + pallor Hospital Course SEVERE ANEMIA - Present with Hgb 5.6 on admission - Mostly due to RUDY - stools heme negative in ED, no obvious signs of bleeding, vitals stable - Transfused 2 units PRBC yesterday - Gastro on board recommended EGD and colonoscopy work up - Pt wants to go home and she will arrange for workup as an outpatient - Continue iron supplement - check H/H at 5pm and if stable, will discharge home and will do EGD/ Colonoscopy as an outpatient. CHEST PAIN - likely from symptomatic anemia - EKG shows ST depressions in the lateral leads - possibly demand ischemia from anemia - All sets CM are negative - Continue ASA since no signs of active bleeding, will hold if hgb drops after blood transfusion - continue beta cleve, and statin - Echo done showed Normal LV chamber size with mild concentric LVH. * Normal LV systolic function, EF 65-70%. * No segmental left ventricular wall motion abnormalities are noted. * Grade I diastolic dysfunction. * Aortic valve sclerosis mild, without significant aortic valvular stenosis. COMMUNITY ACQUIRED PNEUMONIA - productive cough x 1 week - right basilar opacity on CXR - no signs of sepsis - Levaquin 750mg x 5 days UTI Asymptomatic, afebrile, no leukocytosis Urine cx growth Ecoli Receive rocephin x1 Already on levaquin that should be covered for UTI HTN - BP controlled, continue carvedilol Stable DM - hgb a1c 6.5 on 02/09 - Controlled - hold oral agents and utilize SSI while hospitalized DVT PROPHYLAXIS - SCDs due to anemia CODE STATUS - Patient is a DNR as per my discussion with her. Total time spent on discharge = 35 minutes This includes examination of the patient, discharge planning, medication reconciliation, and communication with other providers. Discharge Instructions Discharge Instructions Date of Service Feb 09, 2017. Admission Reason for Admission: Anemia Discharge Discharge Diagnosis / Problem: Anemia, Chest pain, Pnemonia, Abnormal urine Discharge Goals Goal(s): Decrease discomfort, Improve function, Improve disease control Activity Recommendations Activity Limitations: resume your previous activity (as tolerated) . Instructions / Follow-Up Instructions / Follow-Up Please follow up with your physician on 02/14/17 at 12:45 pm Check CBC in 1 week Your physician will arrange for referral to see the abdominal specialist doctor that you can get an colonoscopy and Endoscopy as an outpatient Continue iron supplement complete the antibiotic (levaquin) course Please avoid Naproxen, aleve, motrin, ibuprofen for now. Current Hospital Diet Patient's current hospital diet: AHA Diet (Heart Healthy) Discharge Diet Recommended Diet: AHA Diet (Heart Healthy) Pending Studies Studies pending at discharge: yes List of pending studies: Urine culture Laboratory Results Hemoglobin A1c Test 02/09/17 06:48 Range/Units Estimated Average Glucose 140 mg/dl Hemoglobin A1c 6.5 H 4.5-5.6 % Medical Emergencies . Who to Call and When: Medical Emergencies: If at any time you feel your situation is an emergency, please call 911 immediately. . Non-Emergent Contact Non-Emergency issues call your: Primary Care Provider Call Non-Emergent contact if: you have a fever, you have any medication questions . . "Provider Documentation" section prepared by Hilaria Muniz. . VTE Core Measure Inpt VTE Proph given/why not?: SCD's, Contraindicated
== END 2017-02-09 18:35 | disposition home or self-care (01) | DRG 811 ==
LOC: C.EDB 08:53 → C.2T 10:21 → ENRESERV 10:58
PROVIDERS: ADMIT Internal Medicine; ATTEND Internal Medicine
DX: D50.9 Iron deficiency anemia, unspecified (principal); J18.9 Pneumonia, unspecified organism; N39.0 Urinary tract infection, site not specified; R07.9 Chest pain, unspecified; B96.20 Unspecified Escherichia coli [E. coli] as the cause of diseases classified elsewhere; I10 Essential (primary) hypertension; E78.5 Hyperlipidemia, unspecified; E11.9 Type 2 diabetes mellitus without complications; Z66 Do not resuscitate; Z79.82 Long term (current) use of aspirin; Z79.84 Long term (current) use of oral hypoglycemic drugs; Z79.899 Other long term (current) drug therapy

== ENCOUNTER 2018-03-09 08:01 | Observation (INO) | payer OTHER ==
[2018-03-09] VITALS (8 sets, daily range): BP systolic 145–159; BP diastolic 70–75; PULSE 70–83; TEMP 35–37.2; O2SAT 94–99; Ht 157.5 cm; Wt 61.2 kg
[~2018-03-09] VITALS: Ht 157.5 cm; Wt 61.2 kg
[~2018-03-09 08:01] MED LIST: B-COTAB18 PO; CARV12.52 PO; COEN1CAP PO; CYAN100048 PO; FERR1TAB13 PO; MAGN400C2 PO; METF-384 PO; PANT40TA PO; SIMV20TA2 PO; VITACAP37 PO; VNTHFA/IN INH
[2018-03-09 08:30] LABS: BASO % 0.8 %; BASO ABS # 0.06 K/uL (0-0.2); EOS % 4.5 %; EOS ABS # 0.33 K/uL (0-0.5); HEMATOCRIT 35.2 % (37-47); HEMOGLOBIN 11.4 g/dL (12.0-16.0); IG# 0.01 K/uL (0.00-0.02); LYMPH % 14.5 %; LYMPH ABS # 1.07 K/uL (1.2-3.4); MEAN CELL VOLUME 81.5 fL (80-100); MEAN CORPUSCULAR HEMOGLOBIN 26.4 pg (25-34); MEAN CORPUSCULAR HGB CONC 32.4 g/dl (32-36); MEAN PLATELET VOLUME 9.7 fL (7.4-10.4); MONO % 7.3 %; MONO ABS # 0.54 K/uL (0.11-0.59); NEUT % 72.8 %; NEUT ABS # 5.39 K/uL (1.4-6.5); PLATELET COUNT 270 K/uL (130-400); RED CELL DISTRIBUTION WIDTH CV 14.8 % (11.5-14.5); RED CELL DISTRIBUTION WIDTH SD 43.6 fL (36.4-46.3)
[2018-03-09] MEDS ORDERED: NITROGLYCERIN 0.4 MG SL PER TAB CHARGE ONE ×2 (08:50→08:52)
[2018-03-09 08:52] LABS: ALBUMIN 3.4 gm/dl (3.4-5.0); ALKALINE PHOSPHATASE 79 U/L (45-117); ALT/SGPT 12 U/L (12-78); AST/SGOT 13 U/L (15-37); BLOOD UREA NITROGEN 21 mg/dl (7-18); CARBON DIOXIDE 25 mmol/L (21-32); CKMB < 1.0 ng/ml (0.5-3.6); CREATININE 0.68 mg/dl (0.60-1.20); GLUCOSE 179 mg/dl (70-99); LIPASE 195 U/L (73-393); POTASSIUM 4.2 mmol/L (3.5-5.1); SODIUM 138 mmol/L (136-145); TOTAL PROTEIN 6.8 gm/dl (6.4-8.2)
[2018-03-09] MEDS ORDERED: NITROGLYCERIN 2% OINTMENT 30GM TUBE EXT ONE (09:00)
--- NOTE | 2018-03-09 09:00 | DIAGNOSTIC IMAGING REPORT ---
CHEST ONE VIEW PORTABLE CLINICAL HISTORY: CHEST PAIN dyspnea COMPARISON STUDY: 07/04/2017 FINDINGS: The bones soft tissues and hemidiaphragms are normal. The cardiomediastinal silhouette is normal. The lungs are clear. The pulmonary vasculature is normal. IMPRESSION: Negative chest. The above report was generated using voice recognition software. It may contain grammatical, syntax or spelling errors. Electronically signed by: Silver Calvert M.D. 03/09/2018 8:59 AM Dictated Date/Time: 03/09/2018 8:58 AM
--- NOTE | 2018-03-09 09:56 | History and Physical ---
History & Physical Date & Time of Service: Mar 09, 2018 at 09:33 Chief Complaint: Chest Pains Primary Care Physician: Moisés Vanegas M.D. History of Present Illness Source: patient, family 77yo female with history of T2DM, HTN, and hyperlipidemia who presents with chest pain starting yesterday AM. On Saturday AM she ate breakfast consisting of cereal, eggs, and soup and within a few minutes felt sick on her stomach. During that initial episode she had no abdominal pain, chest pain or shortness of breath. She rested on her front porch for a period of time, then layed down to rest in her bed. She felt poorly the rest of the day. Had considerable fatigue to the point where she stayed in the bed all day yesterday. She had vague jaw discomforts, chest discomforts, and left arm pain intermittently throughout the day. She is a poor historian and could not tell me how long the episodes occurred. Her pains were worse with activity. She took tylenol about midnight last pm for the above pains, then had aspirin this am at 0500 for the same pains. She also took 2-3 SL nitroglycerin tablets with relief of the jaw/chest/arm discomfort. Family brought her [facility] this am because of the "terrible day" yesterday and the recurrent symptoms this am. During my interview she denied ANY pain in the jaw/chest/left arm. In retrospect she has had on/off chest discomforts for quite some time and her PCP advised cardiology referral but she refused. This was about 4 months ago. Her FSBS's at home have been "high" (upper 100s) but she doesn't check her sugars often. Past Medical/Surgical History Medical Problems: (1) Anemia (2) told she had "[place]" 25-30 years ago; never had work-up for this (3) DM (diabetes mellitus), type 2 (4) HLD (hyperlipidemia) (5) HTN (hypertension) (6) Iron deficiency anemia (7) chronic cough (8) Symptomatic anemia Surgical Problems: (1) H/O total hysterectomy (2) H/O umbilical hernia repair (3) S/P appendectomy (4) S/P cholecystectomy Family History FH: leukemia SISTER mother - heart disease; ?[place]; in her 80s sister - heart disease; she is age 77yo Social History Smoking Status: Never Smoker Smokeless Tobacco Use: No Marital Status: (4 children; lives in [place] ) Housing status: lives with family Occupational Status: other (farmed, home-maker) Allergies Coded Allergies: Penicillins (Verified Allergy, Unknown, unknown, 07/04/17) Home Medications Scheduled B-Complex Vitamins (Vitamin B Complex), 1 TAB PO DAILY Carvedilol (Coreg), 12.5 MG PO BID Coenzyme Q10 (Ubidecarenone) (Co Q10), 60 MG PO DAILY Cyanocobalamin (Vitamin B-12), 2,000 MCG PO DAILY Ferrous Sulfate (Kp Ferrous Sulfate), 325 MG PO QAM Magnesium Oxide (Magnesium Oxide), 400 MG PO DAILY Metformin Hcl (Glucophage), 1,000 MG PO BID Pantoprazole (Protonix), 40 MG PO DAILY Simvastatin (Zocor), 20 MG PO QPM Vitamin E (E-400), 400 UNITS PO DAILY Scheduled PRN Albuterol Hfa (Ventolin Hfa), 2 PUFFS INH Q6H PRN for SOB/Wheezing Review of Systems Constitutional: + weight loss (20 pounds - time period?), + fatigue (chronic ) , No fever, No chills Eyes: + worsening of vision (gradual, chronic) ENT: + nasal symptoms, No sore throat Respiratory: + cough (chronic), + sputum, No dyspnea on exertion Cardiovascular: + chest pain, + palpitations (last evening ), No orthopnea, No PND, No edema Abdomen: + pain, + nausea, No vomiting, No diarrhea, No GI bleeding Musculoskeletal: No joint pain Genitourinary - Female: + urinary frequency, + urinary incontinence (last few days), No dysuria, No hematuria Neurologic: + memory loss (6+ months) Psychiatric: No depression symptoms Endocrine: + fatigue Hematologic / Lymphatic: No abnormal bleeding/bruising Integumentary: No rash Physical Exam Vital Signs Date Time Temp Pulse Resp B/P (MAP) Pulse Ox O2 Delivery O2 Flow Rate FiO2 03/09/18 09:09 82 23 128/67 96 Nasal Cannula 1.0 03/09/18 08:58 82 22 143/74 96 Nasal Cannula 1.0 03/09/18 08:57 96 Nasal Cannula 1.0 03/09/18 08:20 85 03/09/18 08:09 Room Air 03/09/18 08:05 36.7 88 18 168/82 96 Room Air General Appearance: WD/WN, no apparent distress, + pertinent finding (poor historian but otherwise awake/alert) Head: normocephalic, atraumatic Eyes: PERRL ENT: TMs normal, + pertinent finding (post-nasal drip on pharyngeal wall; nose - inferior turbinates very swollen, boggy; ?nasal polyp on left) Neck: supple, no adenopathy, thyroid normal, no JVD, no carotid bruits Respiratory/Chest: no respiratory distress, no accessory muscle use, + wheezing (occasional, b/l, bases) Cardiovascular: regular rate, rhythm, no gallop, no murmur, normal peripheral pulses Abdomen/GI: normal bowel sounds, soft, no organomegaly, + tenderness (high epigastric region) Back: normal inspection Extremities/Musculoskelatal: no pedal edema Neurologic/Psych: no motor/sensory deficits, alert, normal mood/affect, normal reflexes, oriented x 3 Skin: + pertinent finding (vitiligo of face?) Lymphatic: no adenopathy (cervical LAD not present) Diagnostics Laboratory Results Results Past 24 Hours Test 03/09/18 08:15 03/09/18 08:26 03/09/18 08:35 Range/Units White Blood Count 7.40 4.8-10.8 K/uL Red Blood Count 4.32 4.2-5.4 M/uL Hemoglobin 11.4 12.0-16.0 g/dL Hematocrit 35.2 37-47 % Mean Corpuscular Volume 81.5 80-100 fL Mean Corpuscular Hemoglobin 26.4 25-34 pg Mean Corpuscular Hemoglobin Concent 32.4 32-36 g/dl Platelet Count 270 130-400 K/uL Mean Platelet Volume 9.7 7.4-10.4 fL Neutrophils (%) (Auto) 72.8 % Lymphocytes (%) (Auto) 14.5 % Monocytes (%) (Auto) 7.3 % Eosinophils (%) (Auto) 4.5 % Basophils (%) (Auto) 0.8 % Neutrophils # (Auto) 5.39 1.4-6.5 K/uL Lymphocytes # (Auto) 1.07 1.2-3.4 K/uL Monocytes # (Auto) 0.54 0.11-0.59 K/uL Eosinophils # (Auto) 0.33 0-0.5 K/uL Basophils # (Auto) 0.06 0-0.2 K/uL RDW Standard Deviation 43.6 36.4-46.3 fL RDW Coefficient of Variation 14.8 11.5-14.5 % Immature Granulocyte % (Auto) 0.1 % Immature Granulocyte # (Auto) 0.01 0.00-0.02 K/uL Sodium Level 138 136-145 mmol/L Potassium Level 4.2 3.5-5.1 mmol/L Chloride Level 107 98-107 mmol/L Carbon Dioxide Level 25 21-32 mmol/L Anion Gap 6.0 3-11 mmol/L Blood Urea Nitrogen 21 7-18 mg/dl Creatinine 0.68 0.60-1.20 mg/dl Estimated GFR () 96.4 Estimated GFR (Non- 83.2 BUN/Creatinine Ratio 30.4 10-20 Random Glucose 179 70-99 mg/dl Calcium Level 9.0 8.5-10.1 mg/dl Total Bilirubin 0.4 0.2-1 mg/dl Direct Bilirubin 0.1 0-0.2 mg/dl Aspartate Amino Transf (AST/SGOT) 13 15-37 U/L Alanine Aminotransferase (ALT/SGPT) 12 12-78 U/L Alkaline Phosphatase 79 45-117 U/L Total Creatine Kinase 25 26-192 U/L Creatine Kinase MB < 1.0 0.5-3.6 ng/ml Creatine Kinase MB Ratio 0-3.0 Total Protein 6.8 6.4-8.2 gm/dl Albumin 3.4 3.4-5.0 gm/dl Lipase 195 73-393 U/L Bedside Troponin I < 0.030 0-0.045 ng/ml Urine Color YELLOW Urine Appearance CLOUDY CLEAR Urine pH 5.5 4.5-7.5 Urine Specific Ruth 1.019 1.000-1.030 Urine Protein NEG NEG Urine Glucose (UA) NEG NEG Urine Ketones NEG NEG Urine Occult Blood NEG NEG Urine Nitrite NEG NEG Urine Bilirubin NEG NEG Urine Urobilinogen NEG NEG Urine Leukocyte Esterase SMALL NEG Urine WBC (Auto) 1-5 0-5 /hpf Urine RBC (Auto) 0-4 0-4 /hpf Urine Hyaline Casts (Auto) 1-5 0-5 /lpf Urine Epithelial Cells (Auto) >30 0-5 /lpf Urine Bacteria (Auto) 3+ NEG Microbiology Results 03/09/18 Urine Culture, Received Pending Diagnostic Radiology cxr: FINDINGS: The bones soft tissues and hemidiaphragms are normal. The cardiomediastinal silhouette is normal. The lungs are clear. The pulmonary vasculature is normal. IMPRESSION: Negative chest. EKG EKG - my reading - NSR, q waves V1/V2, minimal ST segment depression/ downsloping anterolateral leads in comparison to prior EKGs - no change Impression Assessment and Plan 77yo female with history of HTN, hyperlipidemia, T2DM, and strong family history of heart disease presenting with 24 hours of illness including nausea, fatigue, intermittent vague chest discomfort, intermittent jaw and left arm discomfort, urinary frequency and incontinence, and uncontrolled T2DM along with chronic cough. 1. chest pain/abnormal EKG/multiple CAD risk factors - she clearly has not felt well in the last 24 hours. She has had intermittent chest discomfort over the last few months as well. She had numerous CAD risk factors. Despite several episodes of chest discomfort and other symptoms over the last 24 hours her troponin, fortunately, is negative. Will defer on heparin drip for now given her abdominal pain, iron deficiency anemia, and previous GI bleeding. But, would have low threshold if she develops recurrent symptoms, positive troponin, EKG changes, etc. Obtain echo. Cardiology consult requested. At the very least needs stress test. Serial troponins. Place on telemetry. Lipids were checked in the outpatient setting in January and were well-controlled. Continue statin agent. 2. chronic cough - I believe this is mostly from post-nasal drip syndrome; cannot rule out bronchospasm given the mild wheezing. Place on nasal steroid and oral antihistamine. Place on albuterol for her wheezing. Chest x-ray noted to be normal. 3. epigastric abdominal pain, weight loss, h/o iron deficiency - place on PPI twice daily. place on carafate qid. needs EGD to r/o malignancy. in the past she has refused GI w/u for the iron deficiency. 4. ?UTI - urine cx sent; place on rocephin; she is symptomatic for infection. 5. DVT proph - cautiously will use heparin SC TID. 6. HTN - mildly uncontrolled; needs to be on MICHAEL or ARB given her T2DM. 7. T2DM - hold metformin, place on novolog, BSG ac/hs, DM diet. A1c was just checked in the last 1-2 months; was modestly above 7%. 8. hyperlipidemia - again her lipids were well-controlled on last check. TSH also recently checked and was wnl. 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
[2018-03-09] MEDS ORDERED: ACETAMINOPHEN 325 MG TAB PO PRN (10:15)
[2018-03-09] MEDS ORDERED: ALUMINUM/MAGNESIUM/SIMETH (MAALOX MAX) 30 ML UDC PO PRN (10:15)
[2018-03-09] MEDS ORDERED: NITROGLYCERIN 0.4 MG SL PER TAB CHARGE SL PRN (10:15)
[2018-03-09] MEDS ORDERED: ONDANSETRON INJ 2 MG/ML 2 ML VIAL IV PRN (10:15)
[2018-03-09] MEDS ORDERED: MAGNESIUM HYDROXIDE SUSP 30 ML UDC PO PRN (10:15)
[2018-03-09] MEDS: PATIENT'S HEIGHT AND/OR WEIGHT NEEDED SCH (11:01)
[2018-03-09] MEDS ORDERED: PANTOprazole SOD 40 MG TAB PO ONE (11:45)
[2018-03-09] MEDS ORDERED: FEXOFENADINE HCL 60 MG TAB PO ONE (11:45)
[2018-03-09] MEDS: ALBUTEROL 0.083% NEBU SOLN 3 ML VIAL INH SCH ×3 (12:00→18:50)
[2018-03-09] MEDS: CEFTRIAXONE SOD INJ 1 GM in DEXTROSE 5% ADD-VANTAGE 50ML 50 ML IV SCH (12:21)
[2018-03-09] MEDS: SUCRALFATE 1 GM/10 ML UDC PO SCH ×3 (12:22→20:54)
[2018-03-09 12:37] LABS: INR 1.1 (0.9-1.1)
[2018-03-09 13:03] LABS: TRANSFERRIN 270 mg/dl (200-360)
[2018-03-09] MEDS: HEPARIN SOD 5000 UNIT/0.5 ML CARP SQ SCH ×2 (14:05→21:04)
--- NOTE | 2018-03-09 14:07 | EMERGENCY ROOM VISIT NOTE ---
History Report prepared by Jolynn: Maribell Garcia Under the Supervision of: Dr. Ben Pino M.D. First contact with patient: 08:08 Chief Complaint: CHEST PAIN Stated Complaint: CHEST PAINS History of Present Illness The patient is a 77 year old female who presents to the Emergency Room with complaints of chest pain since yesterday morning. The patient states that her chest pains have been intermittent and that she last had the pain this morning, but currently denies having the pain. She states that her pain lasted for about an hour and states that she was eating breakfast when the pain came on this morning. She reports that the pain this morning radiated into her back and states that the pain usually does not radiate into her back. The patient does report being active yesterday and states that she had to sit down when she had the pain yesterday. She reports that she took 2 aspirin for her chest pain. The patient also reports being sweaty and states that she has also had some jaw pain. She also reports that sometimes she can feel her heart "going too fast" and her family reports that the patient was weak last night and that her heart rate was high. Per family, the patient looks more pale than usual. The patient reports a history of a heart attack years ago. The patient also reports having a blood transfusion but denies any recent problems besides some intermittent headaches. The patient also states that she has been "slow with urination" and that she has had abdominal pains over the last couple of weeks. The patient reports that her abdominal pains are separate from her chest pains. Per family , the patient has had a chronic cough. Pt denies LOC, visual changes, neck pain, nausea, vomiting, melena, hematochezia, numbness, lymphadenopathy, rash , or other complaints. Source of History: patient, family Onset: yesterday morning Position: chest Quality: other (pain) Timing: intermittent Associated Symptoms: + headache (intermittent ), + diaphoresis, + cough, + abdominal pain, + back pain, + urinary symptoms, + weakness, No LOC Note: additional symptoms: jaw pain, racing heart Review of Systems See HPI for pertinent positives and negatives. A total of ten systems were reviewed and were otherwise negative. Past Medical & Surgical Medical Problems: (1) Chest pain (2) Chest pain (3) DM (diabetes mellitus) (4) History of [place] (myocardial infarction) (5) HLD (hyperlipidemia) (6) HTN (hypertension) (7) Iron deficiency anemia (8) Symptomatic anemia Surgical Problems: (1) H/O total hysterectomy (2) H/O umbilical hernia repair (3) S/P appendectomy (4) S/P cholecystectomy Family History FH: leukemia SISTER Social History Smoking Status: Never Smoker Alcohol Use: none Marital Status: Housing Status: lives with family Current/Historical Medications Scheduled B-Complex Vitamins (Vitamin B Complex), 1 TAB PO DAILY Carvedilol (Coreg), 12.5 MG PO BID Coenzyme Q10 (Ubidecarenone) (Co Q10), 60 MG PO DAILY Cyanocobalamin (Vitamin B-12), 2,000 MCG PO DAILY Ferrous Sulfate (Kp Ferrous Sulfate), 325 MG PO QAM Magnesium Oxide (Magnesium Oxide), 400 MG PO DAILY Metformin Hcl (Glucophage), 1,000 MG PO BID Pantoprazole (Protonix), 40 MG PO DAILY Simvastatin (Zocor), 20 MG PO QPM Vitamin E (E-400), 400 UNITS PO DAILY Scheduled PRN Albuterol Hfa (Ventolin Hfa), 2 PUFFS INH Q6H PRN for SOB/Wheezing Allergies Coded Allergies: Penicillins (Verified Allergy, Unknown, unknown, 07/04/17) Physical Exam Vital Signs Date Time Temp Pulse Resp B/P (MAP) Pulse Ox O2 Delivery O2 Flow Rate FiO2 03/09/18 10:15 98 Nasal Cannula 1.0 03/09/18 09:47 78 22 143/93 98 Nasal Cannula 1.0 03/09/18 09:09 82 23 128/67 96 Nasal Cannula 1.0 03/09/18 08:58 82 22 143/74 96 Nasal Cannula 1.0 03/09/18 08:57 96 Nasal Cannula 1.0 03/09/18 08:20 85 03/09/18 08:14 96 Nasal Cannula 1.0 03/09/18 08:09 Room Air 03/09/18 08:05 36.7 88 18 168/82 96 Room Air Physical Exam GENERAL: Awake, alert, well-appearing, in no distress HENT: Normocephalic, atraumatic. Oropharynx unremarkable. EYES: Pale conjunctiva. Sclera non-icteric. NECK: Supple. No nuchal rigidity. FROM. No masses. RESPIRATORY: Clear to auscultation. No wheezes. No rales. Normal respiratory effort. CARDIAC: Normal rate. Normal rhythm. No murmurs. No rubs. Extremities warm and well perfused. Pulses equal. No JVD. GI: Soft, non-distended. Epigastric tenderness. No rebound or guarding. No masses. RECTAL: Deferred. MUSCULOSKELETAL: Atraumatic. Chest examination reveals no tenderness. The back is without obvious abnormality. There is no CVA tenderness to palpation. No joint edema. LOWER EXTREMITIES: Calves are equal size bilaterally and non-tender. No edema. No discoloration. NEURO: Normal sensorium. No sensory or motor deficits noted. SKIN: No rash or jaundice noted. Medical Decision & Procedures ER Provider Diagnostic Interpretation: Radiology results as stated below per my review and radiologist interpretation: CHEST ONE VIEW PORTABLE CLINICAL HISTORY: CHEST PAIN dyspnea COMPARISON STUDY: 07/04/2017 FINDINGS: The bones soft tissues and hemidiaphragms are normal. The cardiomediastinal silhouette is normal. The lungs are clear. The pulmonary vasculature is normal. IMPRESSION: Negative chest. The above report was generated using voice recognition software. It may contain grammatical, syntax or spelling errors. Electronically signed by: Silver Calvert M.D. 03/09/2018 8:59 AM Dictated Date/Time: 03/09/2018 8:58 AM Laboratory Results 03/09/18 08:15 Red Blood Count 4.32, Mean Corpuscular Volume 81.5, Mean Corpuscular Hemoglobin 26.4, Mean Corpuscular Hemoglobin Concent 32.4, Mean Platelet Volume 9.7, Neutrophils (%) (Auto) 72.8, Lymphocytes (%) (Auto) 14.5, Monocytes (%) (Auto) 7.3, Eosinophils (%) (Auto) 4.5, Basophils (%) (Auto) 0.8, Neutrophils # (Auto) 5.39, Lymphocytes # (Auto) 1.07, Monocytes # (Auto) 0.54, Eosinophils # (Auto) 0.33, Basophils # (Auto) 0.06 03/09/18 08:15 Test 03/09/18 08:15 03/09/18 08:26 03/09/18 08:35 White Blood Count 7.40 K/uL (4.8-10.8) Red Blood Count 4.32 M/uL (4.2-5.4) Hemoglobin 11.4 g/dL (12.0-16.0) Hematocrit 35.2 % (37-47) Mean Corpuscular Volume 81.5 fL (80-100) Mean Corpuscular Hemoglobin 26.4 pg (25-34) Mean Corpuscular Hemoglobin Concent 32.4 g/dl (32-36) Platelet Count 270 K/uL (130-400) Mean Platelet Volume 9.7 fL (7.4-10.4) Neutrophils (%) (Auto) 72.8 % Lymphocytes (%) (Auto) 14.5 % Monocytes (%) (Auto) 7.3 % Eosinophils (%) (Auto) 4.5 % Basophils (%) (Auto) 0.8 % Neutrophils # (Auto) 5.39 K/uL (1.4-6.5) Lymphocytes # (Auto) 1.07 K/uL (1.2-3.4) Monocytes # (Auto) 0.54 K/uL (0.11-0.59) Eosinophils # (Auto) 0.33 K/uL (0-0.5) Basophils # (Auto) 0.06 K/uL (0-0.2) RDW Standard Deviation 43.6 fL (36.4-46.3) RDW Coefficient of Variation 14.8 % (11.5-14.5) Immature Granulocyte % (Auto) 0.1 % Immature Granulocyte # (Auto) 0.01 K/uL (0.00-0.02) Anion Gap 6.0 mmol/L (3-11) Estimated GFR () 96.4 Estimated GFR (Non- 83.2 BUN/Creatinine Ratio 30.4 (10-20) Calcium Level 9.0 mg/dl (8.5-10.1) Total Bilirubin 0.4 mg/dl (0.2-1) Direct Bilirubin 0.1 mg/dl (0-0.2) Aspartate Amino Transf (AST/SGOT) 13 U/L (15-37) Alanine Aminotransferase (ALT/SGPT) 12 U/L (12-78) Alkaline Phosphatase 79 U/L (45-117) Total Creatine Kinase 25 U/L (26-192) Creatine Kinase MB < 1.0 ng/ml (0.5-3.6) Creatine Kinase MB Ratio (0-3.0) Total Protein 6.8 gm/dl (6.4-8.2) Albumin 3.4 gm/dl (3.4-5.0) Lipase 195 U/L (73-393) Bedside Troponin I < 0.030 ng/ml (0-0.045) Urine Color YELLOW Urine Appearance CLOUDY (CLEAR) Urine pH 5.5 (4.5-7.5) Urine Specific [place] 1.019 (1.000-1.030) Urine Protein NEG (NEG) Urine Glucose (UA) NEG (NEG) Urine Ketones NEG (NEG) Urine Occult Blood NEG (NEG) Urine Nitrite NEG (NEG) Urine Bilirubin NEG (NEG) Urine Urobilinogen NEG (NEG) Urine Leukocyte Esterase SMALL (NEG) Urine WBC (Auto) 1-5 /hpf (0-5) Urine RBC (Auto) 0-4 /hpf (0-4) Urine Hyaline Casts (Auto) 1-5 /lpf (0-5) Urine Epithelial Cells (Auto) >30 /lpf (0-5) Urine Bacteria (Auto) 3+ (NEG) Laboratory results reviewed by me Medications Administered Medications (Trade) Dose Ordered Sig/Vance Route Start Time Stop Time Status Last Admin Dose Admin Nitroglycerin (Nitrostat Tab) 0.4 mg STK-MED ONCE .ROUTE 03/09/18 08:52 03/09/18 08:53 DC 03/09/18 08:52 0.4 MG Nitroglycerin (Nitroglycerin 2% Oint) 0.5 inch NOW ONCE EXT 03/09/18 09:00 03/09/18 09:01 DC 03/09/18 09:00 0.5 INCH Acetaminophen (Tylenol Tab) 650 mg Q4H PRN PO 03/09/18 10:15 04/08/18 10:14 03/09/18 11:34 650 MG ECG Per My Interpretation Indication: chest pain Rate (beats per minute): 84 Rhythm: normal sinus Findings: ST depression (Lateral (slight) ), other (no ST elevation, no PACs, no PVCs) ED Course 0810: I reviewed the patient's records. 0820: The patient was evaluated in room A10. A complete history and physical exam was performed. 0850: The patient started having jaw pain so she will be given Nitro sublingual. 0852: Ordered Nitroglycerin 0.4 mg SL. 0900: Ordered Nitroglycerin 0.5 inch EXT. 0902: Per nursing staff, the patient used nitroglycerin yesterday. Nursing staff reports that the patient was 93 on Room Air so she was placed on Oxygen. 14932: Upon reexamination, the patient was resting. I discussed the test results and treatment plan with her. The patient will be evaluated for further management by Dr. Hameed. Medical Decision Prior records/ancillary studies reviewed. Triage Nursing notes reviewed and agree them. Additional history obtained from the family. The patient's history was concerning for chest pain. Differential diagnosis: Etiologies such as cardiac ischemia, aortic dissection, pulmonary embolism, pneumonia, pneumothorax, musculoskeletal, infections, pericarditis, myocarditis , esophageal rupture, gastrointestinal, as well as others were entertained. Physical examination: As above. ER treatment provided: 1 sublingual nitroglycerin with resolution of pain Nitropaste On reassessment the patient felt better. Diagnostic interpretation by me: The electrocardiogram was negative for pathologic change. The labs revealed a mild anemia on CBC. Chemistry panel unremarkable. Cardiac markers negative. Imaging studies: Chest x-ray as above Consultation: A consultation was placed with the hospitalist. The case was discussed and diagnostics were reviewed. The patient was evaluated in the ER for further treatment. Medication Reconcilliation Current Medication List: was personally reviewed by me Blood Pressure Screening Patient's blood pressure: Elevated blood pressure will be monitored by hospitalist Consults Time Called: 09 Consulting Physician: Dr. Hameed- [place] Returned Call: [id number] Discussed the patient's case. The patient will be evaluated for further treatment and disposition. Impression Primary Impression: Substernal chest pain Additional Impressions: Jaw pain Epigastric abdominal pain Scribe Attestation The scribe's documentation has been prepared under my direction and personally reviewed by me in its entirety. I confirm that the note above accurately reflects all work, treatment, procedures, and medical decision making performed by me. Departure Information Dispostion Being Evaluated By Hospitalist Referrals Moisés Vanegas M.D. (PCP) Patient Instructions [facility] Problem Qualifiers
--- NOTE | 2018-03-09 14:26 | Cardiology Consultation ---
Cardiology Consultation Date of Consultation: Mar 09, 2018. Requesting Physician: Dr. Dunne Reason for Consultation: Chest and jaw pain Pt evaluation today including: conversation w/ patient, conversation w/ family , physical exam, lab review, review of studies, conversation w/ attending History of Present Illness This is a very pleasant 77-year-old [facility] woman who unfortunately is a poor historian. She has a history of hypertension and diabetes mellitus. She presented to the emergency room today with complaints of chest discomfort, however it seems that her description is quite different depending on who she is talking with about it. To me she was complaining of jaw pain, when asked if she was having chest pain she said she thought the jaw pain was coming from her chest but would not specifically tell me that she was having chest pain. It is also hard to tell from her description how long it lasted, it sounds as though it only lasted a short time (perhaps minutes) but then she did recall that she may have had an emergency room and it may have gone away with nitroglycerin. Based on prior records from the emergency room I suspect it was much longer than that. She also has been feeling very weak and fatigued, and has been having difficulty with nausea after eating. At the time of my evaluation she was not having jaw discomfort. Her background history is notable for her being told she had a heart attack in the past, her family thought that that might of been 20 or 30 years ago and it was at [facility]. Her recalls that she was told she might need surgery and the therefore refused evaluation, they do not recognize catheterization but apparently something showed up on a stress test. I cannot tell what symptoms she had at that time or how the diagnosis of a heart attack was made. Past Medical/Surgical History (1) HTN (hypertension) (2) History of [place] (myocardial infarction) (3) DM (diabetes mellitus) (4) HLD (hyperlipidemia) Family History FH: leukemia SISTER Social History Smoking Status: Never Smoker History of Alcohol Use: No Review of Systems Constitutional: + fatigue, No fever, No weight loss, No weakness Respiratory: + cough Cardiac: + see HPI, + chest pain, No orthopnea, No PND, No edema, No palpitations Abdomen: No pain, No nausea, No vomiting, No diarrhea, No GI bleeding Female : No problem reported Neurologic: No paralysis, No weakness, No numbness/tingling, No balance problems Heme: No abnormal bleeding/bruising, No clotting problems Endo: No fatigue Skin: No problem reported All Other Systems: Reviewed and Negative Allergies Coded Allergies: Penicillins (Verified Allergy, Unknown, unknown, 07/04/17) Medications Current Inpatient Medications Medications (Trade) Dose Ordered Sig/Vance Route Start Time Stop Time Status Last Admin Dose Admin Heparin Sodium (Porcine) (Heparin Sq 5000 Unit/0.5ml) 5,000 unit Q8 SQ 03/09/18 14:00 04/08/18 13:59 03/09/18 14:05 5,000 UNIT Acetaminophen (Tylenol Tab) 650 mg Q4H PRN PO 03/09/18 10:15 04/08/18 10:14 03/09/18 11:34 650 MG Al Hydrox/Mg Hydrox/Simethicone (Maalox Max Susp) 15 ml Q4H PRN PO 03/09/18 10:15 04/08/18 10:14 Magnesium Hydroxide (Milk Of Magnesia Susp) 30 ml Q12H PRN PO 03/09/18 10:15 04/08/18 10:14 Ondansetron HCl (Zofran Inj) 4 mg Q6H PRN IV 03/09/18 10:15 04/08/18 10:14 Nitroglycerin (Nitrostat Tab) 0.4 mg UD PRN SL 03/09/18 10:15 04/08/18 10:14 03/09/18 13:59 0.4 MG Aspirin (Ecotrin Tab) 81 mg QAM PO 03/10/18 09:00 04/09/18 08:59 Carvedilol (Coreg Tab) 12.5 mg BID PO 03/09/18 21:00 04/08/18 20:59 Pantoprazole Sodium (Protonix Tab) 40 mg BID PO 03/09/18 21:00 04/08/18 20:59 Simvastatin (Zocor Tab) 20 mg QPM PO 03/09/18 21:00 04/08/18 20:59 Sucralfate (Carafate Susp) 1 gm QID PO 03/09/18 13:00 04/08/18 12:59 03/09/18 12:22 1 GM Fluticasone Propionate (Flonase Nasal [place]) 2 sprays DAILY NA 8/6/18 09:00 04/09/18 08:59 Fexofenadine HCl (Concepcion Tab) 60 mg BID PO 03/09/18 21:00 04/08/18 20:59 Albuterol Sulfate (Ventolin 0.083% 2.5MG/3ML Neb) 2.5 mg Q6R INH 03/09/18 12:00 04/08/18 11:59 03/09/18 14:02 2.5 MG Ceftriaxone Sodium 1 gm/ Dextrose 50 ml @ 100 mls/hr Q24H IV 03/09/18 12:00 03/14/18 11:59 03/09/18 12:21 100 MLS/HR Fluticasone Propionate (Flonase Nasal [place]) 2 sprays 1115 ONCE NA 03/10/18 11:15 03/10/18 11:16 Physical Exam Vital Signs Past 12 Hours Date Time Temp Pulse Resp B/P (MAP) Pulse Ox O2 Delivery O2 Flow Rate FiO2 03/09/18 14:16 36.6 75 18 145/74 (97) 94 Room Air 03/09/18 14:05 71 16 95 Room Air 03/09/18 11:43 35.0 70 16 155/75 (101) 95 Room Air 03/09/18 11:43 35.0 70 16 155/75 (101) 95 Room Air 03/09/18 11:43 95 Room Air 03/09/18 11:43 95 Room Air 03/09/18 10:58 78 18 155/66 98 03/09/18 10:15 98 Nasal Cannula 1.0 03/09/18 09:47 78 22 143/93 98 Nasal Cannula 1.0 03/09/18 09:09 82 23 128/67 96 Nasal Cannula 1.0 03/09/18 08:58 82 22 143/74 96 Nasal Cannula 1.0 03/09/18 08:57 96 Nasal Cannula 1.0 03/09/18 08:20 85 03/09/18 08:14 96 Nasal Cannula 1.0 03/09/18 08:09 Room Air 03/09/18 08:05 36.7 88 18 168/82 96 Room Air Constitutional: General Apperance: heathly-appearing Level of Distress: NAD Psychiatric: Mental Status: active & alert Head: normocephalic Eyes: EOM: EOMI ENMT: normal ENT inspection, hearing grossly normal Neck: supple, no masses Lungs: Respiratory effort: no dyspnea, good air movement Auscultation: breath sounds normal, no wheezing Cardiovascular: Heart Auscultation: RRR, no murmurs, no rubs, no gallops Peripheral Pulses: Bruits: none appreciated Abdomen: Bowel Sounds: normal Inspection & Palpation: soft, no tenderness, guarding & rebound, no masses Musculoskeletal: normal strength (5/5 throughout) Extremities: no edema Neurologic: Cranial Nerves: grossly intact Sensation: grossly intact Data Laboratory Results: Last 24 Hours Test 03/09/18 08:15 03/09/18 08:26 03/09/18 08:35 03/09/18 12:07 White Blood Count 7.40 K/uL Red Blood Count 4.32 M/uL Hemoglobin 11.4 g/dL Hematocrit 35.2 % Mean Corpuscular Volume 81.5 fL Mean Corpuscular Hemoglobin 26.4 pg Mean Corpuscular Hemoglobin Concent 32.4 g/dl Platelet Count 270 K/uL Mean Platelet Volume 9.7 fL Neutrophils (%) (Auto) 72.8 % Lymphocytes (%) (Auto) 14.5 % Monocytes (%) (Auto) 7.3 % Eosinophils (%) (Auto) 4.5 % Basophils (%) (Auto) 0.8 % Neutrophils # (Auto) 5.39 K/uL Lymphocytes # (Auto) 1.07 K/uL Monocytes # (Auto) 0.54 K/uL Eosinophils # (Auto) 0.33 K/uL Basophils # (Auto) 0.06 K/uL RDW Standard Deviation 43.6 fL RDW Coefficient of Variation 14.8 % Immature Granulocyte % (Auto) 0.1 % Immature Granulocyte # (Auto) 0.01 K/uL Sodium Level 138 mmol/L Potassium Level 4.2 mmol/L Chloride Level 107 mmol/L Carbon Dioxide Level 25 mmol/L Anion Gap 6.0 mmol/L Blood Urea Nitrogen 21 mg/dl Creatinine 0.68 mg/dl Estimated GFR () 96.4 Estimated GFR (Non- 83.2 BUN/Creatinine Ratio 30.4 Random Glucose 179 mg/dl Calcium Level 9.0 mg/dl Total Bilirubin 0.4 mg/dl Direct Bilirubin 0.1 mg/dl Aspartate Amino Transf (AST/SGOT) 13 U/L Alanine Aminotransferase (ALT/SGPT) 12 U/L Alkaline Phosphatase 79 U/L Total Creatine Kinase 25 U/L Creatine Kinase MB < 1.0 ng/ml Creatine Kinase MB Ratio Total Protein 6.8 gm/dl Albumin 3.4 gm/dl Lipase 195 U/L Bedside Troponin I < 0.030 ng/ml Urine Color YELLOW Urine Appearance CLOUDY Urine pH 5.5 Urine Specific [place] 1.019 Urine Protein NEG Urine Glucose (UA) NEG Urine Ketones NEG Urine Occult Blood NEG Urine Nitrite NEG Urine Bilirubin NEG Urine Urobilinogen NEG Urine Leukocyte Esterase SMALL Urine WBC (Auto) 1-5 /hpf Urine RBC (Auto) 0-4 /hpf Urine Hyaline Casts (Auto) 1-5 /lpf Urine Epithelial Cells (Auto) >30 /lpf Urine Bacteria (Auto) 3+ Prothrombin Time 11.2 SECONDS Prothromb Time International Ratio 1.1 Iron Level 19 mcg/dl Transferrin 270 mg/dl Transferrin % Saturation 5 % Ferritin 14.9 ng/ml Troponin I < 0.015 ng/ml Imaging: Chest x-ray shows no acute abnormality EKG: Sinus rhythm, nonspecific ST-T abnormalities. Telemetry reviewed: Sinus rhythm Echocardiogram: Pending Assessment & Plan 1. Chest discomfort: From her description I cannot tell what is causing her discomfort, in fact he seemed to be suggesting that she was having jaw discomfort and not chest discomfort but I think her memory is poor so she cannot remember what she felt. I think we have to assume that she had some degree of chest discomfort, and based on her history she could have coronary artery disease. She does have risk factors for it. It does not appear to be in acute ischemic event however, her electrocardiogram is not normal but does not show acute changes and her enzymes are negative. I would continue to trend enzymes and if negative I would plan a pharmacologic stress test tomorrow. 2. Abnormal electrocardiogram: She does have an abnormal electrocardiogram but it does not show a clear infarct pattern. She has some nonspecific changes, I do not have old electrocardiograms for comparison. We can see if anything evolves on subsequent electrocardiograms. Thank you for allowing me to participate in her care.
[2018-03-09] MEDS ORDERED: IV FLUIDS COMPLETED PRN (15:00)
--- NOTE | 2018-03-09 16:02 | ECHOCARDIOGRAM REPORT ---
*NOTICE TO RECEIVING DEMOCRAT AGENCY This information is strictly Confidential and protected under [place] law. [place] law prohibits you from making any further disclosure of this information unless further disclosure is expressly permitted by the written consent of the person to whom it pertains or is authorized by law. A general authorization for the release of medical or other information is not sufficient for this purpose. Hospital accepts no responsibility if the information is made available to any other person, INCLUDING THE PATIENT. Interpretation Summary * Name: KATHRYN LAZAR Study Date: 03/09/2018 10:40 AM BP: 155/66 mmHg * Patient Location: [facility] HR: 74 * : 1940 (M/d/yyyy) Gender: Female Height: 62 in * Age: 77 yrs Ethnicity: CA Weight: 137 lb * Ordering Physician: Todd Hameed * Performed By: Jackie Patten RDCS * * Reason For Study: CHEST PAIN * BSA: 1.6 m2 * -- Conclusions -- * 1. Normal LV size. Mild concentric LVH. * 2. Normal LV systolic function. LVEF 60-65%. No regional wall motion abnormalities. * 3. Normal RV size and function. * 4. No significant valvular pathology. * 5. Compared with prior study on 02/09/2017: No significant change Procedure Details * A complete two-dimensional transthoracic echocardiogram was performed (2D, M-mode, Doppler and color flow Doppler). Left Ventricle * The left ventricle is grossly normal size. * There is mild concentric left ventricular hypertrophy. * Ejection Fraction = 60-65%. * No regional wall motion abnormalities noted. Right Ventricle * The right ventricle is grossly normal size. * The right ventricular systolic function is normal as assessed by tricuspid annular plane systolic excursion (TAPSE) (normal >1.5 cm). Atria * The left atrial size is normal. * Right atrial size is normal. * No ASD detected; PFO is not assessed. Mitral Valve * The mitral valve is grossly normal. * There is no mitral valve stenosis. * Significant mitral regurgitation is absent. Tricuspid Valve * Significant tricuspid regurgitation is absent. Aortic Valve * The aortic valve opens well. * The aortic valve is trileaflet. * No hemodynamically significant valvular aortic stenosis. * There is no significant aortic regurgitation. Pulmonic Valve * The pulmonary valve is inadequately visualized, but the Doppler data is adequate for interpretation. * Pulmonic stenosis is absent. * Trace pulmonic valvular regurgitation. Great Vessels * The aortic root and proximal ascending aorta are normal sized. Pericardium/Pleural * There is no pericardial effusion. Great Vessels * Normal inferior vena cava size and collapsability with sniff indicates a normal right atrial pressure of 3 mmHg MMode 2D Measurements and Calculations IVSd 1.4 cm IVSs 1.7 cm LVIDd 3.8 cm LVIDs 2.6 cm LVPWd 1.6 cm LVPWs 2.0 cm IVS/LVPW 0.87 FS 30.4 % EDV(Teich) 61.5 ml ESV(Teich) 25.5 ml EF(Teich) 58.5 % EDV(cubed) 54.4 ml ESV(cubed) 18.4 ml EF(cubed) 66.2 % % IVS thick 21.6 % % LVPW thick 23.1 % LV mass(C)d 220.5 grams LV mass(C)dI 135.5 grams/m\S\2 LV mass(C)s 199.5 grams LV mass(C)sI 122.6 grams/m\S\2 SV(Teich) 36.0 ml SI(Teich) 22.1 ml/m\S\2 SV(cubed) 36.0 ml SI(cubed) 22.1 ml/m\S\2 Ao root diam 3.3 cm Ao root area 8.7 cm\S\2 LA dimension 3.5 cm LA/Ao 1.0 LVAd ap4 20.1 cm\S\2 LVLd ap4 6.9 cm EDV(MOD-sp4) 49.9 ml EDV(sp4-el) 49.5 ml LVAs ap4 12.0 cm\S\2 LVLs ap4 6.1 cm ESV(MOD-sp4) 21.1 ml ESV(sp4-el) 19.9 ml EF(MOD-sp4) 57.8 % EF(sp4-el) 59.9 % LVAd ap2 21.0 cm\S\2 LVLd ap2 8.0 cm EDV(MOD-sp2) 49.2 ml EDV(sp2-el) 46.9 ml LVAs ap2 11.6 cm\S\2 LVLs ap2 6.5 cm ESV(MOD-sp2) 19.2 ml ESV(sp2-el) 17.8 ml EF(MOD-sp2) 61.0 % EF(sp2-el) 62.1 % LVLd %diff 13.4 % EDV(MOD-bp) 52.8 ml LVLs %diff 5.5 % ESV(MOD-bp) 20.5 ml EF(MOD-bp) 61.1 % SV(MOD-sp4) 28.8 ml SI(MOD-sp4) 17.7 ml/m\S\2 SV(MOD-sp2) 30.0 ml SI(MOD-sp2) 18.5 ml/m\S\2 SV(MOD-bp) 32.2 ml SI(MOD-bp) 19.8 ml/m\S\2 SV(sp4-el) 29.7 ml SI(sp4-el) 18.2 ml/m\S\2 SV(sp2-el) 29.1 ml SI(sp2-el) 17.9 ml/m\S\2 Doppler Measurements and Calculations MV E max simona 79.4 cm/sec MV A max simona 67.7 cm/sec MV E/A 1.2 MV dec time 0.22 sec Ao V2 max 126.7 cm/sec Ao max PG 6.4 mmHg Ao max PG (full) 4.0 mmHg LV V1 max PG 2.5 mmHg LV V1 max 78.5 cm/sec
[2018-03-09] MEDS ORDERED: GLUCOSE 40% GEL 15 GM TUBE PO PRN (20:15)
[2018-03-09] MEDS ORDERED: GLUCOSE 10 TABS/TUBE PO PRN (20:15)
[2018-03-09] MEDS ORDERED: DEXTROSE 50% 50 ML SYR IV PRN (20:15)
[2018-03-09] MEDS ORDERED: GLUCAGON FOR INJ 1 MG VIAL IM PRN (20:15)
[2018-03-09] MEDS ORDERED: CARBOHYDRATES FOR HYPOGLYCEMIA PO PRN (20:15)
[2018-03-09] MEDS: FEXOFENADINE HCL 60 MG TAB PO SCH (20:53)
[2018-03-09] MEDS: CARVEDILOL 12.5 MG TAB PO SCH (20:54)
[2018-03-09] MEDS ORDERED: PANTOprazole SOD 40 MG TAB PO SCH (21:00)
[2018-03-09] MEDS ORDERED: SIMVASTATIN 20 MG TAB PO SCH (21:00)
[2018-03-09] MEDS: INSULIN ASPART 100 UNITS/ML 3 ML PEN SC SCH (21:04)
[2018-03-09] MEDS ORDERED: INSULIN GLARGINE SOLOSTAR 100 UNITS/ML 3 ML PEN SC ONE (21:04)
[2018-03-10] VITALS (8 sets, daily range): BP systolic 156–166; BP diastolic 61–79; PULSE 70–88; TEMP 36.4–36.7; O2SAT 93–97
[2018-03-10] MEDS: ALBUTEROL 0.083% NEBU SOLN 3 ML VIAL INH SCH ×3 (02:04→13:34)
[2018-03-10] MEDS: HEPARIN SOD 5000 UNIT/0.5 ML CARP SQ SCH (06:16)
[2018-03-10 06:34] LABS: HEMATOCRIT 30.5 % (37-47); HEMOGLOBIN 9.7 g/dL (12.0-16.0); MEAN CORPUSCULAR HEMOGLOBIN 26.1 pg (25-34); MEAN CORPUSCULAR HGB CONC 31.8 g/dl (32-36); MEAN PLATELET VOLUME 10.5 fL (7.4-10.4); PLATELET COUNT 233 K/uL (130-400); RED CELL DISTRIBUTION WIDTH CV 14.9 % (11.5-14.5); RED CELL DISTRIBUTION WIDTH SD 44.5 fL (36.4-46.3); WHITE BLOOD COUNT 5.89 K/uL (4.8-10.8)
[2018-03-10 07:02] LABS: CALCIUM 8.1 mg/dl (8.5-10.1); CREATININE 0.84 mg/dl (0.60-1.20); POTASSIUM 4.4 mmol/L (3.5-5.1)
[2018-03-10] MEDS: SUCRALFATE 1 GM/10 ML UDC PO SCH ×3 (07:50→16:44)
[2018-03-10] MEDS: FEXOFENADINE HCL 60 MG TAB PO SCH (07:50)
[2018-03-10] MEDS: CARVEDILOL 12.5 MG TAB PO SCH (07:50)
[2018-03-10] MEDS: INSULIN ASPART 100 UNITS/ML 3 ML PEN SC SCH ×3 (07:58→16:15)
[2018-03-10] MEDS ORDERED: FLUTICASONE PROPIONATE NA SPR 16 GM BTL SCH (09:00)
[2018-03-10] MEDS ORDERED: PANTOprazole INJ 40 MG in SYRINGE 0 ML IV SCH (09:00)
[2018-03-10] MEDS ORDERED: ASPIRIN 81 MG ECTAB PO SCH (09:00)
--- NOTE | 2018-03-10 09:09 | Progress Note ---
Subjective Date of Service: Mar 10, 2018. Subjective Pt evaluation today including: conversation w/ patient, conversation w/ family (daughter at bedside), physical exam, chart review, lab review, review of studies (echo), conversation w/ industrial methods consultant (GI), review of inpatient medication list Pain: no chest pain, abd pain also better PO Intake: npo Voiding: no voiding problems (reports urine flow "is better" today) tele stable overnight she overall feels better no chest pain, jaw pain, L arm pain no dyspnea cough improved with albuterol treatments abd pain also improved pleased with how she feels today Problem List Medical Problems: (1) Anemia Status: Acute (2) Epigastric abdominal pain Status: Acute (3) Jaw pain Status: Acute (4) SOB (shortness of breath) Status: Acute (5) Substernal chest pain Status: Acute Review of Systems Constitutional: No fever Respiratory: No shortness of breath, No dyspnea on exertion Cardiac: No chest pain, No orthopnea, No PND, No edema Abdomen: No pain, No nausea, No vomiting Objective Vital Signs Date Time Temp Pulse Resp B/P (MAP) Pulse Ox O2 Delivery O2 Flow Rate FiO2 03/10/18 08:00 Room Air 03/10/18 07:38 36.5 70 18 160/66 (97) 96 Room Air 03/10/18 06:58 71 18 95 Room Air 03/10/18 04:06 36.7 73 18 161/74 (103) 95 Room Air 03/10/18 02:04 77 18 96 Room Air 03/09/18 23:40 37.2 81 18 149/72 (97) 96 Room Air 03/09/18 20:00 Room Air 03/09/18 19:02 36.5 71 18 159/70 (99) 99 03/09/18 18:50 83 16 94 Room Air 03/09/18 15:08 36.6 71 18 157/73 (101) 95 03/09/18 14:16 36.6 75 18 145/74 (97) 94 Room Air 03/09/18 14:05 71 16 95 Room Air 03/09/18 11:43 35.0 70 16 155/75 (101) 95 Room Air 03/09/18 11:43 35.0 70 16 155/75 (101) 95 Room Air 03/09/18 11:43 95 Room Air 03/09/18 11:43 95 Room Air 03/09/18 10:58 78 18 155/66 98 03/09/18 10:15 98 Nasal Cannula 1.0 03/09/18 09:47 78 22 143/93 98 Nasal Cannula 1.0 03/09/18 09:09 82 23 128/67 96 Nasal Cannula 1.0 Physical Exam General Appearance: no apparent distress ENT: pharynx normal Neck: no JVD Respiratory/Chest: lungs clear, no respiratory distress, no accessory muscle use Cardiovascular: regular rate, rhythm, no gallop, no murmur Abdomen: normal bowel sounds, soft, no organomegaly, + tenderness (minimal - high epigastric region) Extremities: no pedal edema Neurologic/Psychiatric: alert Skin: + pallor (mild) Laboratory Results Last 24 Hours Test 03/09/18 12:07 03/09/18 16:06 03/09/18 19:41 03/09/18 20:01 Prothrombin Time 11.2 SECONDS Prothromb Time International Ratio 1.1 Iron Level 19 mcg/dl Transferrin 270 mg/dl Transferrin % Saturation 5 % Ferritin 14.9 ng/ml Troponin I < 0.015 ng/ml < 0.015 ng/ml Bedside Glucose 163 mg/dl 265 mg/dl Test 03/10/18 05:37 03/10/18 07:13 White Blood Count 5.89 K/uL Red Blood Count 3.72 M/uL Hemoglobin 9.7 g/dL Hematocrit 30.5 % Mean Corpuscular Volume 82.0 fL Mean Corpuscular Hemoglobin 26.1 pg Mean Corpuscular Hemoglobin Concent 31.8 g/dl RDW Standard Deviation 44.5 fL RDW Coefficient of Variation 14.9 % Platelet Count 233 K/uL Mean Platelet Volume 10.5 fL Sodium Level 140 mmol/L Potassium Level 4.4 mmol/L Chloride Level 110 mmol/L Carbon Dioxide Level 25 mmol/L Anion Gap 5.0 mmol/L Blood Urea Nitrogen 37 mg/dl Creatinine 0.84 mg/dl Est Creatinine Clear Calc Drug Dose 46.8 ml/min Estimated GFR () 76.6 Estimated GFR (Non- 66.1 BUN/Creatinine Ratio 43.6 Random Glucose 177 mg/dl Calcium Level 8.1 mg/dl Bedside Glucose 196 mg/dl Assessment and Plan 77yo female with history of HTN, hyperlipidemia, T2DM, and strong family history of heart disease who presented with 24 hours of illness including nausea , fatigue, intermittent vague chest discomfort, intermittent jaw and left arm discomfort, abdominal pain, urinary frequency and incontinence, and uncontrolled T2DM along with chronic cough. 1. chest pain/abnormal EKG/multiple CAD risk factors - ruled out for ACS with negative serial troponins. ECHO with normal wall motion and preserved LV function. Tele stable overnight. Seen by cardiology - dobutamine stress echo planned for today. I am going to speak with cardiology about the GI issues and ensure it is not a contraindication to pursuing the stress today. 2. chronic cough - I believe this is mostly from post-nasal drip syndrome; there is likely a component of bronchospasm as well. Chest x-ray noted to be normal. 3. epigastric abdominal pain, weight loss, iron deficiency anemia - GI consult requested with Nancy. noted that her hemoglobin dropped 2 grams overnight. make PPI IV and give BID. cont carafate qid. needs EGD to r/o malignancy. in the past she has refused GI w/u for the iron deficiency. 4. e. coli UTI - day #2 rocephin; await final culture results. 5. DVT proph - stop heparin due to #3. SCDs only at this time. 6. HTN - mildly uncontrolled; needs to be on MICHAEL or ARB given her T2DM. Cont beta cleve. 7. T2DM - hold metformin, place on novolog and lantus, BSG ac/hs, DM diet. A1c was just checked in the last 1-2 months; was modestly above 7%. 8. hyperlipidemia - again her lipids were well-controlled on last check. TSH also recently checked and was wnl. Cont statin. 9. Fe def anemia - see #3 above. Consider IV iron as she had been taking oral iron for 6+ months without significant improvement. patient requests level 5 DNR patient and family also request a consult with patient agency service representative to begin paperwork for advanced directives await GI and cardiology recommendations Continued [facility] stay due to: multiple IV medications needed Discharge planning: home
[2018-03-10] MEDS ORDERED: LOSARTAN POTASSIUM 25 MG TAB PO ONE (09:15)
[2018-03-10] MEDS ORDERED: DOBUTamine HCL 12.5 MG/ML 20 ML VIAL ONE (09:42)
[2018-03-10] MEDS ORDERED: METOPROLOL TARTRATE 1 MG/ML VIAL ONE ×2 (09:43)
[2018-03-10] MEDS ORDERED: ATROPINE SULFATE 0.1 MG/ML 10 ML SYR ONE ×2 (09:43)
--- NOTE | 2018-03-10 10:44 | DOBUTAMINE ECHO ---
*NOTICE TO RECEIVING [employer]IANCE [employer]Y AGENCY This information is strictly Confidential and protected under [place] law. [place] law prohibits you from making any further disclosure of this information unless further disclosure is expressly permitted by the written consent of the person to whom it pertains or is authorized by law. A general authorization for the release of medical or other information is not sufficient for this purpose. Hospital accepts no responsibility if the information is made available to any other person, INCLUDING THE PATIENT. Interpretation Summary * Name: KATHRYN LAZAR Study Date: 03/10/2018 08:59 AM BP: 150/74 mmHg * Patient Location: C.2T\S\S229\S\2 HR: 67 * : 1940 (M/d/yyyy) Gender: Female Height: 62 in * Age: 77 yrs Ethnicity: CA Weight: 134 lb * Ordering Physician: Alexander Cifuentes * Performed By: Vanessa Narayan RDCS * * Reason For Study: CHEST PAIN * BSA: 1.6 m2 * -- Conclusions -- * Dobutamine Stress Echo: * 1. Negative Dobutamine stress echo for ischemia at 85 % MPHR. * 2. Negative Dobutamine ECG for ischemia at 85 % MPHR. * 3. Hypertensive blood pressure response. * 4. No arrhythmia. * 5. No chest pain reported. Procedure Details * DOBUTAMINE ECHO, CPT#72609 Left Ventricle * The left ventricle is normal in size. * Left ventricular systolic function is normal. * Resting wall motion: Normal. Stress wall motion: Appropriate increase in Left ventricular systolic function and decrease in cavity size. No stress induced segmental wall motion abnormalities. * The left ventricular ejection fraction increases normally with stress. The left ventricular end-systolic cavity size reduces post-stress (normal response). The left ventricular wall motion with stress is normal. Stress Parameters * NSR at 70 bpm. * No arrhythmia were noted with stress. * Stress ECG: No ST changes. No arrhythmias. * Rest heart rate was '67' BPM. * Rest blood pressure was '150/74' * Maximum heart rate achieved was 120 bpm. * Maximum heart rate was 85 % of maximum age-predicted heart rate. * Maximum blood pressure was '224/98' * Total exercise time was '10:18' * Maximum Dobutamine infusion rate was '30' mcg/kg/min. * A total of 1 mg of intravenous Atropine was used to supplement Dobutamine for heart rate response. * Dobutamine infusion was terminated due to achieving target heart rate * A total of 5 mg of IV Metoprolol was administered to reverse Dobutamine-induced tachycardia. * The patient did not exhibit any symptoms during drug infusion. * The patient exhibited a hypertensive response with stress. * Target heart rate achieved.
[2018-03-10] MEDS ORDERED: FLUTICASONE PROPIONATE NA SPR 16 GM BTL ONE (11:15)
[2018-03-10] MEDS: CEFTRIAXONE SOD INJ 1 GM in DEXTROSE 5% ADD-VANTAGE 50ML 50 ML IV SCH ×2 (12:08→13:08)
--- NOTE | 2018-03-10 12:47 | Consultant Recommendations ---
Ssis Etl Developer Recommendations Date of Service Mar 10, 2018. Ssis Etl Developer Recommendations You are scheduled for EGD (upper endoscopy) and colonoscopy on [address] Adan Gary. Please arrive at [facility]: [address] [place] [address] [address], [place] [address] at 10:30AM that day. Please call [phone] tomorrow (03/11/18) to do your pre-procedure interview and to receive instructions for your procedures.
--- NOTE | 2018-03-10 13:13 | Gastrointestinal Consultation ---
Gastrointestinal Consultation Date of Consultation: Mar 10, 2018 Attending Physician: Todd Dunne Consulting Physician: Juan Miguel Arevalo Reason for Consultation: Iron deficiency anemia, weight loss History of Present Illness Patient is a 77 year old female seen for iron deficiency anemia, weight loss. She is admitted for chest pain and jaw pain symptoms. Cardiac workup so far negative, she also just had dobutamine stress test that's negative this morning. She has hx of iron deficiency anemia, been on iron supplements. Hgb 11 on admission, dropped to 9 which is her baseline. She does c/o epigastric pain at times after eating. Denies any n/v. + 20lbs weight loss but unsure over how much period of time. She said bowel movements usually regular but recently constipated. Denies any dark or tarry stools, rectal bleeding. No sure of family history in particular about colorectal ca. She was seen last June by our group, recommended EGD/Colonoscopy eval but she refused then. Past Medical/Surgical History Medical Problems: (1) Anemia Status: Acute (2) Epigastric abdominal pain Status: Acute (3) Jaw pain Status: Acute (4) SOB (shortness of breath) Status: Acute (5) Substernal chest pain Status: Acute Past Medical History: Medical Problems: (1) Anemia (2) told she had "AL" 25-30 years ago; never had work-up for this (3) DM (diabetes mellitus), type 2 (4) HLD (hyperlipidemia) (5) HTN (hypertension) (6) Iron deficiency anemia (7) chronic cough (8) Symptomatic anemia Surgical Problems: (1) H/O total hysterectomy (2) H/O umbilical hernia repair (3) S/P appendectomy (4) S/P cholecystectomy Family History FH: leukemia SISTER Social History Smoking Status: Never Smoker Alcohol Use: none Marital Status: Housing Status: lives with family Occupation Status: other (farmed, home-maker) Allergies Coded Allergies: Penicillins (Verified Allergy, Unknown, unknown, 07/04/17) Current Medications Home Meds and Scripts Medications Dose Route/Sig Max Daily Dose Days Date Category Ventolin Hfa (Albuterol) 200 Puffs/39009 Mcg Aers 2 Puffs INH Q6H PRN 07/04/17 Reported Protonix (Pantoprazole Sodium) 40 Mg Tab 40 Mg PO DAILY 07/04/17 Reported Kp Ferrous Sulfate (Ferrous Sulfate) 325 Mg Tab 325 Mg PO QAM 07/04/17 Reported Magnesium Oxide 400 Mg Cap 400 Mg PO DAILY 02/08/17 Reported Vitamin B-12 (Cyanocobalamin) 1,000 Mcg Sub 2,000 Mcg PO DAILY 02/08/17 Reported Co Q10 (Coenzyme Q10) 30 Mg Cap 60 Mg PO DAILY 02/08/17 Reported Vitamin B Complex (B-Complex Vitamins) 1 Tab Tab 1 Tab PO DAILY 02/08/17 Reported E-400 (Vitamin E) 400 Unit Cap 400 Units PO DAILY 02/08/17 Reported Coreg (Carvedilol) 12.5 Mg Tab 12.5 Mg PO BID 02/08/17 Reported Zocor (Simvastatin) 20 Mg Tab 20 Mg PO QPM 02/08/17 Reported Glucophage (Metformin Hcl) 1,000 Mg Tab 1,000 Mg PO BID 02/08/17 Reported Review of Systems Constitutional: No fever, No chills Respiratory: No cough, No shortness of breath Cardiac: + see HPI, + chest pain Abdomen: + pain, + constipation, No nausea, No vomiting, No GI bleeding Endo: + fatigue Physical Exam Date Time Temp Pulse Resp B/P (MAP) Pulse Ox O2 Delivery O2 Flow Rate FiO2 03/10/18 11:38 36.5 88 18 156/79 (104) 93 Room Air 03/10/18 08:00 Room Air 03/10/18 07:38 36.5 70 18 160/66 (97) 96 Room Air 03/10/18 06:58 71 18 95 Room Air 03/10/18 04:06 36.7 73 18 161/74 (103) 95 Room Air 03/10/18 02:04 77 18 96 Room Air 03/09/18 23:40 37.2 81 18 149/72 (97) 96 Room Air 03/09/18 20:00 Room Air 03/09/18 19:02 36.5 71 18 159/70 (99) 99 03/09/18 18:50 83 16 94 Room Air 03/09/18 15:08 36.6 71 18 157/73 (101) 95 03/09/18 14:16 36.6 75 18 145/74 (97) 94 Room Air 03/09/18 14:05 71 16 95 Room Air General Appearance: WD/WN, no apparent distress Eyes: normal inspection, PERRL, EOMI Neck: supple, no JVD, trachea midline Respiratory/Chest: normal breath sounds, no respiratory distress, no accessory muscle use Cardiovascular: regular rate, rhythm, no gallop, no murmur Abdomen: normal bowel sounds, non tender, soft Extremities: normal inspection, no pedal edema, no calf tenderness Neurologic/Psych: alert, normal mood/affect, oriented x 3 Skin: warm/dry, no rash, + pallor Laboratory Results Last 24 Hours Test 03/09/18 16:06 03/09/18 19:41 03/09/18 20:01 03/10/18 05:37 Bedside Glucose 163 mg/dl 265 mg/dl Troponin I < 0.015 ng/ml White Blood Count 5.89 K/uL Red Blood Count 3.72 M/uL Hemoglobin 9.7 g/dL Hematocrit 30.5 % Mean Corpuscular Volume 82.0 fL Mean Corpuscular Hemoglobin 26.1 pg Mean Corpuscular Hemoglobin Concent 31.8 g/dl RDW Standard Deviation 44.5 fL RDW Coefficient of Variation 14.9 % Platelet Count 233 K/uL Mean Platelet Volume 10.5 fL Sodium Level 140 mmol/L Potassium Level 4.4 mmol/L Chloride Level 110 mmol/L Carbon Dioxide Level 25 mmol/L Anion Gap 5.0 mmol/L Blood Urea Nitrogen 37 mg/dl Creatinine 0.84 mg/dl Est Creatinine Clear Calc Drug Dose 46.8 ml/min Estimated GFR () 76.6 Estimated GFR (Non- 66.1 BUN/Creatinine Ratio 43.6 Random Glucose 177 mg/dl Calcium Level 8.1 mg/dl Test 03/10/18 07:13 03/10/18 13:02 Bedside Glucose 196 mg/dl Impression Patient is a 77 year old female w iron deficiency anemia, weight loss, epigastric post prandial pain. Previously refused EGD/Colonoscopy evaluation. After discussion with her and family again today, she is agreeable to have these procedures done in outpt setting. Plan - Monitor H/H and transfuse prn - Protonix 40mg BID - We have scheduled her for EGD/Colonoscopy on 03/20/[address] Adan Gary at [facility] ([facility] [address], [facility] [address]). She is to arrive at 10:30AM that day. /her will call tomorrow 03/11/18 to do the pre-procedure interview and to receive instructions for pt's procedures. This information has been given to pt's . Attending attestation I have seen, examined this patient, and agree with the findings and above by our mid-level provider Saurabh Sweet. -Anemia without gi bleeding identified. -Desires outpt procedures, that have been arranged. instructions have been given.
[2018-03-10 14:10] LABS: HEMATOCRIT 32.1 % (37-47); HEMOGLOBIN 10.5 g/dL (12.0-16.0)
[2018-03-10] MEDS ORDERED: CZR50 PO (16:37)
[2018-03-10] MEDS ORDERED: IPRA1AER2 INH (16:37)
[2018-03-10] MEDS ORDERED: SUCR1TAB29 PO (16:37)
[2018-03-10] MEDS ORDERED: CEPH500C PO (16:37)
[2018-03-10] MEDS ORDERED: FERR1TAB13 PO (16:37)
[2018-03-10] MEDS ORDERED: PANT40TA PO (16:37)
[2018-03-10] MEDS ORDERED: FLNIN (16:37)
--- NOTE | 2018-03-10 16:58 | Discharge Instructions ---
Discharge Instructions Date of Service Mar 10, 2018. Admission Reason for Admission: Chest Pain Discharge Discharge Diagnosis / Problem: chest pain - no evidence of heart attack; bladder infection; low iron Discharge Goals Goal(s): Learn about illness, Diagnostic testing, Therapeutic intervention Activity Recommendations Activity Limitations: as noted below For the next week or so please take it easy - no heavy exertional activity, no heavy lifting, etc. Light activities are fine. . Instructions / Follow-Up Instructions / Follow-Up From Dr. Hameed - 1. Please see the "work and family life consultant recommendations" regarding your upcoming endoscopies that will be performed at [facility]. 2. For your stomach - * take pantoprazole 40mg twice a day every day * if the prescription is not too expensive please take carafate (sucrafate) 1gram four times a day (before meals & at bedtime) for 7 days * if the prescription is too expensive don't worry you can skip it * avoid aspirin, motrin, ibuprofen, alleve, naprosyn * tylenol IS ok 3. For your high blood pressure - * please start losartan 50mg once daily * take your first dose tomorrow * continue your other blood pressure medications as previous 4. For your low iron levels / iron deficiency - * increase your iron tablet to TWICE A DAY 5. For your urinary tract infection - * take cephalexin 500mg TWICE A DAY for 5 days starting TOMORROW MORNING 6. For your cough/congestion - * use flonase nasal spray - 2 squirts up each nostril once a day * when the one given to you at [facility] runs out this can be purchased over- the-counter * purchase [id number] claritin or maria a and take one of these products daily * use the combivent inhaler supplied by [facility] as needed for cough/wheeze; you can take 1 puff up to 4 times a day 7. Follow-up - * we will be leaving a message tomorrow for you regarding a follow-up appointment with Dr. Vanegas * please see her within 1 week * see the stomach (GI) doctor at [facility] on March 20 as scheduled * please call the number listed in the "work and family life consultant recommendations" for additional instructions 8. Return to [facility] if - * your stomach pains return and they are severe * you are unable to eat or drink * you are short of breath or the chest pain/jaw pain comes back * you have fever over 100.5 degrees * any other concerns Current Hospital Diet Patient's current hospital diet: AHA Diet (Heart Healthy), Diabetes Type 2 Diet Discharge Diet Recommended Diet: AHA Diet (Heart Healthy), Diabetes Type 2 Diet Procedures Procedures Performed: 1. echocardiogram - normal heart function. 2. stress test - NORMAL; no evidence to suggest blocked arteries in your heart. 3. chest x-ray - normal. Pending Studies Studies pending at discharge: no Laboratory Results Hemoglobin A1c Test 01/31/18 07:49 Range/Units Estimated Average Glucose 163 mg/dl Hemoglobin A1c 7.3 H 4.5-5.6 % Lipid Panel Test 01/31/18 07:49 Range/Units Triglycerides Level 96 0-150 mg/dl Cholesterol Level 124 0-200 mg/dl HDL Cholesterol 31 mg/dl Cholesterol/HDL Ratio 4.0 LDL Cholesterol, Calculated 74 mg/dl Medical Emergencies . Who to Call and When: Medical Emergencies: If at any time you feel your situation is an emergency, please call 911 immediately. . Non-Emergent Contact Non-Emergency issues call your: Primary Care Provider, Owner Operator Call Non-Emergent contact if: temperature is above 100.5, your pain is not controlled, your pain is worsening, your pain is unusual for you, your pain is concerning you, you have any medication questions . . "Provider Documentation" section prepared by Todd Hameed. . Energy Risk Management Analyst Recommendations Energy Risk Management Analyst Recommendations: You are scheduled for EGD (upper endoscopy) and colonoscopy on [address] Adan Gary. Please arrive at [facility]: [address] [place] [address] [address], [place] [address] at 10:30AM that day. Please call [phone] tomorrow (03/11/18) to do your pre-procedure interview and to receive instructions for your procedures.
[2018-03-10] MEDS ORDERED: IPRATROPIUM BROMIDE/ALBUTEROL respimat INH INH SCH (17:00)
[2018-03-10] MEDS ORDERED: INSULIN GLARGINE SOLOSTAR 100 UNITS/ML 3 ML PEN SC SCH (21:00)
--- NOTE | 2018-03-11 00:04 | Discharge Summary ---
Discharge Summary Date of Service Mar 10, 2018. Discharge Summary Admission Date: Mar 09, 2018 at 10:32 Discharge Date: Mar 10, 2018 Discharge Disposition: Home Principal Diagnosis: chest pain, ACS ruled out, negative stress test Problems/Secondary Diagnoses: 1. weight loss of uncertain etiology but GI origin of most concern 2. severe iron deficiency anemia 3. mild cognitive impairment/probable early dementia 4. T2DM 5. HTN 6. hyperlipidemia 7. chronic cough - question of post-nasal drip syndrome and/or bronchospasm 8. e. coli UTI Procedures: 1. echocardiogram: -- Conclusions -- * 1. Normal LV size. Mild concentric LVH. * 2. Normal LV systolic function. LVEF 60-65%. No regional wall motion abnormalities. * 3. Normal RV size and function. * 4. No significant valvular pathology. * 5. Compared with prior study on 02/09/2017: No significant change. 2. dobutamine stress echo: -- Conclusions -- * Dobutamine Stress Echo: * 1. Negative Dobutamine stress echo for ischemia at 85 % MPHR. * 2. Negative Dobutamine ECG for ischemia at 85 % MPHR. * 3. Hypertensive blood pressure response. * 4. No arrhythmia. * 5. No chest pain reported. Consultations: cardiology - MD Nancy White GI Medication Reconciliation New Medications: Cephalexin Monohydrate (Keflex) 500 Mg Cap 500 MG PO BID for 5 Days, #10 CAP 0 Refills start 03/11/18 Losartan Potassium (Losartan Potassium) 50 Mg Tab 50 MG PO QAM, #30 TABS 2 Refills for high blood pressure and to protect your kidneys Sucralfate (Carafate) 1 Gm Tab 1 GM PO ACHS for 7 Days, #28 TAB 0 Refills Fluticasone Propionate (Fluticasone Propionate) 50 Mcg/Act Spr 2 SPRAYS NA DAILY, #1 INHALER 1 Refill you can purchase this [id number] Changed Medications: Ferrous Sulfate (Kp Ferrous Sulfate) 325 Mg Tab 325 MG PO BID, #60 TAB 1 Refill (Changed from: QAM; Refills: ) purchase [id number] Ipratropium-Albuterol (Combivent Respimat) 1 Aer Aer 1 PUFFS INH QID PRN for cough/wheeze, #1 INH 0 Refills (Changed from: Albuterol Hfa (Ventolin Hfa) 200 Puffs/70248 Mcg Aers 2 Puffs INH Q6H PRN SOB/Wheezing) Pantoprazole (Protonix) 40 Mg Tab 40 MG PO BID, #60 TAB 2 Refills (Changed from: DAILY; Refills: ) Continued Medications: B-Complex Vitamins (Vitamin B Complex) 1 Tab Tab 1 TAB PO DAILY Carvedilol (Coreg) 12.5 Mg Tab 12.5 MG PO BID, TAB Coenzyme Q10 (Ubidecarenone) (Co Q10) 30 Mg Cap 60 MG PO DAILY, CAP Cyanocobalamin (Vitamin B-12) 1,000 Mcg Sub 2000 MCG PO DAILY Magnesium Oxide (Magnesium Oxide) 400 Mg Cap 400 MG PO DAILY Metformin Hcl (Glucophage) 1,000 Mg Tab 1000 MG PO BID, TAB Simvastatin (Zocor) 20 Mg Tab 20 MG PO QPM, TAB Vitamin E (E-400) 400 Unit Cap 400 UNITS PO DAILY Discharge Exam Physical Exam: General Appearance: no apparent distress ENT: pharynx normal, + nasal congestion (inferior turbinates swollen ) Neck: no JVD Respiratory/Chest: lungs clear, no respiratory distress, no accessory muscle use Cardiovascular: regular rate, rhythm, no gallop, no murmur, normal peripheral pulses Abdomen / GI: normal bowel sounds, soft, no organomegaly, no pulsatile mass , + tenderness (very mild, high epigastric region) Extremities: no pedal edema Neurologic/Psychiatric: alert Skin: + pallor (mild) Hospital Course HISTORY OF PRESENT ILLNESS: 77yo female with history of HTN, hyperlipidemia, T2DM, and strong family history of heart disease who presented with 24 hours of illness including nausea , fatigue, intermittent vague chest discomfort, intermittent jaw and left arm discomfort, abdominal pain, urinary frequency and incontinence, and uncontrolled T2DM along with chronic cough. HOSPITAL COURSE: 1. chest pain/multiple CAD risk factors - patient ruled out for ACS with negative serial troponins x 3. Telemetry remained normal while hospitalized. ECHO with normal wall motion and preserved LV function. Dobutamine stress echo was NEGATIVE for ischemia. In light of the above negative work-up her chest pain was felt to be noncardiac in origin. Given her iron deficiency anemia and abdominal pain her pain was suspected to be GI in origin. 2. epigastric abdominal pain, weight loss, iron deficiency anemia - certainly concerning for significant GI tract pathology. She was seen in consult by [facility]. She was agreeable to endoscopic evaluation but she preferred it to be on an outpatient basis. She was started on PPI twice daily along with a 7-day course of carafate. Her abdominal pain improved while hospitalized. She was advised to increase her ferrous sulfate to twice daily. She will complete an EGD and colonoscopy within 1 week of discharge at [facility]. 3. e. coli UTI - urine culture was growing e. coli prior to discharge. She received 2 doses of IV rocephin, and was discharged home on a 5-day course of keflex. 4. chronic cough - I believe this is mostly from post-nasal drip syndrome; there may be a component of bronchospasm as well as she had mild wheezing at time of hospital admission. Chest x-ray was noted to be normal. She will discharge home on nasal steroid, antihistamine, and combivent q6h prn. 5. HTN - her BPs were mildly uncontrolled while here. A low-dose ARB in light of her diabetes was added. She will continue on beta cleve. 6. hyperlipidemia - her lipids were well-controlled on last check in the outpatient setting. TSH also recently checked and was normal. She will continue on statin agent. 7. T2DM - she will continue on metformin after discharge. Total Time Spent: Greater than 30 minutes This includes examination of the patient, discharge planning, medication reconciliation, and communication with other providers. Discharge Instructions Please refer to the electronic Patient Visit Report (Discharge Instructions) for additional information. Follow-Up 1. EGD and colonoscopy on 03/20/2018 @ 1030am with Dr. Adan Gary at [facility] 2. Dr. Vanegas, PCP, within 1 week Additional Copies To Adan Gary, ; Moisés Vanegas M.D.
[2018-03-11] MEDS ORDERED: LOSARTAN POTASSIUM 25 MG TAB PO SCH (09:00)
[2018-03-12] MEDS ORDERED: CIPR-255 PO (08:44)
--- NOTE | 2018-03-12 08:45 | Progress Note ---
Progress Note Date of Service Mar 12, 2018. Progress Note time - 0845 Urine cx noted to show e.coli, ESBL. NOT SENSITIVE TO ancef/keflex. d/c keflex. change to cipro 500mg BID x 7 days. new script sent to [facility] in [place]. will have social work inform patient of need to change antibiotic Viktoria LAKHANI MD
== END 2018-03-10 18:30 | disposition home or self-care (01) ==
LOC: C.EDB 08:02 → C.2T 10:32 → ENRESERV 10:41
PROVIDERS: ADMIT Internal Medicine; ATTEND Internal Medicine
DX: R07.9 Chest pain, unspecified (principal); N39.0 Urinary tract infection, site not specified; B96.20 Unspecified Escherichia coli [E. coli] as the cause of diseases classified elsewhere; D50.9 Iron deficiency anemia, unspecified; R68.84 Jaw pain; R63.4 Abnormal weight loss; G31.84 Mild cognitive impairment of uncertain or unknown etiology; E11.9 Type 2 diabetes mellitus without complications; I10 Essential (primary) hypertension; E78.5 Hyperlipidemia, unspecified; Z90.49 Acquired absence of other specified parts of digestive tract; Z88.0 Allergy status to penicillin; Z66 Do not resuscitate; Z79.82 Long term (current) use of aspirin